=== PATIENT | male | born 1935 | race Caucasian/White ===

== ENCOUNTER → 2017-10-15 | Outpatient (CLI) | payer OTHER | LOC: BHFA 10:45 | PROVIDERS: ATTEND Internal Medicine Cardiovascular Disease | DX: I25.10 Atherosclerotic heart disease of native coronary artery without angina pectoris (principal) | CPT/HCPCS: 78452; 93017; 93306; A9500; J2785 ==

== ENCOUNTER → 2017-12-20 | Outpatient (CLI) | payer OTHER | LOC: FIMAGING 11:53 | PROVIDERS: ATTEND Radiology Diagnostic Radiology | DX: I87.2 Venous insufficiency (chronic) (peripheral) (principal); I70.8 Atherosclerosis of other arteries; L97.329 Non-pressure chronic ulcer of left ankle with unspecified severity; S81.802A Unspecified open wound, left lower leg, initial encounter ==

== ENCOUNTER 2017-12-21 15:36 | Inpatient (IN) | payer OTHER ==
[2017-12-21] MEDS ORDERED: ONDANSETRON DISINTEGRATING 4 MG TAB PO PRN (16:35)
[2017-12-21] MEDS ORDERED: ONDANSETRON 4 MG/2 ML VIAL IVP PRN (16:35)
[2017-12-21] MEDS ORDERED: ACETAMINOPHEN 325 MG TAB PO PRN (16:35)
[2017-12-21] MEDS ORDERED: VANCOMYCIN 1 GM in NS 250 ML IV ONE (17:30)
[2017-12-21 17:37] LABS: INR 1.1 (0.83-1.16); PROTIME(PATIENT) 14.4 SEC (12.0-15.0)
[2017-12-21] MEDS: AMPICILLIN/SULBACTAM 3 GM VIAL IV SCH ×2 (18:38→22:59)
[2017-12-21] MEDS: CARVEDILOL 6.25 MG TAB PO SCH (18:38)
--- NOTE | 2017-12-21 19:24 | GHP ---
[f rep st] HISTORY AND PHYSICAL DATE OF ADMISSION: 12/21/2017 CHIEF COMPLAINT: Leg pain. HISTORY OF PRESENT ILLNESS: An 82-year-old male with extensive cardiac history who has been followed in the outpatient setting for left lower extremity ulcerations. The patient was imaged earlier this week with ultrasound, found not to have DVT, and was noted in surgical evaluation today to have a ma rkedly extensive cellulitis. [facility] Upon arrival to the medical floor, the patient denies any chest pain. Denies palpitations. Endorses subjective fevers and chills. Endorses poor appetite, poor intake, poor fluid intake. Describes co nstipation without any dysuria or hematuria. Has had marked pain of the left lower extremity. Marke dly more pronounced by wrapping of his lower extremity in the outpatient setting. When those wraps w ere relieved, the patient's sensation of pain was markedly improved. The patient denies any abdomina l discomfort, but a sensation of constipation. The patient has been compliant with his outpatient medications. PAST MEDICAL HISTORY: 1. Coronary artery disease status post 12 stents. 2. Hypertension. 3. Hyperlipidemia. 4. Hypothyroidism. 5. Chronic unstable angina. 6. Ischemic cardiomyopathy. 7. History of colonic vesicular fistula status post repair in 2016. SOCIAL HISTORY: Patient occasionally smokes a pipe. Does not take alcohol or illicit drugs. FAMILY HISTORY: Positive for heart disease. REVIEW OF SYSTEMS: A 10-point review of systems is negative with the exception of that reported in t he HPI. ADVANCED DIRECTIVES: Patient is full cor, full tube. His daughter, Angelique, would be his medical deci linda maker. PHYSICAL EXAMINATION: VITAL SIGNS: Blood pressure 121/63, heart rate 67, respiratory rate 16, and 9 3% on room air, 36.5. GENERAL: This is a pleasant, elderly male sitting up in bed. HEENT: Notable for dry mucous membran es. Eye exam is negative for any icterus. CARDIAC: Patient is regular rate and rhythm. A systolic murmur is heard best at the left upper sternal border. PULMONARY: Good respiratory effort. LUNGS: Clear to auscultation bilaterally. GASTROINTESTINAL: The patient has vigorous bowel sounds. ABDOM EN: Soft and nontender. MUSCULOSKELETAL: His left lower extremity is wrapped. There is trace symm etric lower extremity edema. SKIN: Patient has marked swelling and erythema. The left lower extrem ity with open weeping wounds. NEUROLOGIC: He is alert and oriented x3. PSYCHIATRIC: He is pleasant and cooperative on interview and examination. DATA: White count 17.5, hematocrit 36.1, platelet count of 154. Creatinine 2.0, baseline is 1.0. B UN elevated at 55. X-ray of the knee, which I personally reviewed and interpreted, shows no acute bony abnormalities. V ascular calcifications are noted by Radiology. Ultrasound of the left lower extremity shows no deep venous thrombosis. ASSESSMENT AND PLAN: This is an 82-year-old male presenting with left lower extremity ulcerations an d cellulitis. 1. Acute progressive left lower extremity ulcerations and cellulitis. The patient's wounds have mar kedly progressed in the last couple weeks. He has been orally on Bactrim as an outpatient. Patient was evaluated with ultrasound. Seen by General Surgery today and will be taken to the operating room for debridement. Will treat with intravenous vancomycin and Unasyn. Cultures have been obtained fr om the outpatient clinic and are pending at this time. Will make the patient n.p.o. after midnight i n anticipation of the operating room. Additionally holding his aspirin and Plavix for the operating room. 2. Coronary artery disease. The patient is without chest pain complaints. Vital signs are stable. We will continue his carvedilol. Again, holding his aspirin and Plavix overnight. Will additionall y continue his atorvastatin. 3. Hypothyroidism. Will continue his levothyroxine. 4. Acute kidney injury. Patient's creatinine is 2.0. We will hold his angiotensin-converting enzym e inhibitor and hydrochlorothiazide. Will hydrate overnight and recheck his BMP in the morning. 5. Anemia, acute, normocytic. Suspect may be related to blood loss with his wound. We will continu e to follow. 6. Acute leukocytosis secondary to cellulitis and skin ulcerations. Again, cultures have been obtai shirlene. Will empirically treat with broad-spectrum intravenous antibiotics. The patient does not have additional symptoms concerning for other occult infection. 7. Prophylaxis with the sequential compression devices in anticipation of the operating room. 8. Diet: Regular, then n.p.o. after midnight. 9. Disposition: I expect greater than 2 midnights, as the patient is presenting with advanced lower extremity wound requiring intravenous antibiotics and surgical debridement. Discussed the case with Dr. Borden from surgery. Patient will be admitted and taken to the operating room tomorrow. /[id number]/MODL
--- NOTE | 2017-12-21 19:50 | PDMN ---
Medical Necessity Medical necessity: C/M review: est. > 2 MN LOS for eval and TX of acute and progressive left lower extremity ulcerations and cellulitis, acute kidney injury , acute normocytic anemia, acute leukocytosis secondary to cellulitis and ulcerations requiring General Surgery consult, planned 12/22/2017 surgical intervention - debridement, ongoing IV Unasyn, IV Vancomycin, comorbid patient transferred to [facility] from outpatient surgical evaluation, history of CAD S/P 12 stents, hypertension, hyperlipidemia, hypothyroidism, chronic unstable angina, ischemic cardiomyopathy, colonic vesicular fistula S/P repair in 2016 per H/P.
[2017-12-21] MEDS ORDERED: NS 500 ML IV ONE (20:11)
[2017-12-21] MEDS ORDERED: NS 1,000 ML IV SCH (20:15)
[2017-12-21] MEDS: Fluticasone/Vilanterol [Breo Ellipta 200-25 Mcg Inh] 1 EACH IH SCH (20:37)
[2017-12-21] MEDS: LEVOTHYROXINE 88 MCG TAB PO SCH (20:37)
[2017-12-21] MEDS: ATORVASTATIN CALCIUM 20 MG TAB PO SCH (20:37)
[2017-12-21] MEDS: FAMOTIDINE 20 MG TAB PO SCH (20:37)
[2017-12-22] MEDS ORDERED: CALCIUM CARBONATE 500 MG CHEWABLE TAB PO ONE (00:11)
[2017-12-22] MEDS: AMPICILLIN/SULBACTAM 3 GM VIAL IV SCH ×4 (05:25→23:19)
[2017-12-22 05:33] LABS: PLATELET COUNT 143 10^3/uL (150-400)
[2017-12-22] MEDS ORDERED: HYDROmorphONE/DILAUDID 1 MG/ML INJ IVP PRN (06:55)
[2017-12-22] MEDS ORDERED: HYDROmorphONE/DILAUDID 2 MG/ML INJ IVP PRN (07:06)
--- NOTE | 2017-12-22 07:51 | SOAPPROG ---
SOAP Progress Note Assessment/Plan: Assessment: 82 year old seen in my office yesterday with progressive cellulitus and lower extremity wounds WBC improved today. Will proceed with operative debridement Plan: 12/22/17 07:49 Objective: Vital Signs Temp Pulse Resp BP Pulse Ox 36.8 C 60 16 128/67 H 96 12/22/17 07:07 12/22/17 07:07 12/22/17 07:07 12/22/17 07:07 12/22/17 07:07 Laboratory Results 12/22/17 04:13 12/22/17 04:13 12/21/17 12/22/17 12/23/17 05:59 05:59 05:59 Intake Total 309 Balance 309 PT 14.4 SEC (12.0-15.0) 12/21/17 17:18 INR 1.10 (0.83-1.16) 12/21/17 17:18 ICD10 Worksheet Patient Problems: Problems Problem Status Onset Abscess or cellulitis of foot Acute - ICD10 Problem Qualifiers (1) Abscess or cellulitis of foot
[2017-12-22] MEDS ORDERED: NALOXONE HCL 0.4 MG/ML INJ IVP PRN (08:34)
[2017-12-22] MEDS ORDERED: ONDANSETRON 4 MG/2 ML VIAL IVP PRN (08:34)
--- NOTE | 2017-12-22 08:34 | PDANEPAE ---
ANE History of Present Illness here for LLE I and D ANE Past Medical History - Cardiovascular History Hx Hypertension: Yes Hx Arrhythmias: No Hx Chest Pain: Yes Hx Coronary Artery / Peripheral Vascular Disease: Yes Hx CHF / Valvular Disease: No Hx Palpitations: No - Pulmonary History Hx COPD: Yes Hx Asthma/Reactive Airway Disease: No Hx Recent Upper Respiratory Infection: No Hx Oxygen in Use at Home: Yes O2 in Use at Home (L/minute): 2 Hx Sleep Apnea: No Sleep Apnea Screening Result - Last Documented: Positive - Neurologic History Hx Cerebrovascular Accident: No Hx Seizures: No Hx Dementia: No - Endocrine History Hx Diabetes: No Hypothyroid: No Hyperthyroid: No - Renal History Hx Renal Disorders: No ANE Review of Systems Review of systems is: negative Review of Systems: - Exercise capacity Exercise capacity: <4 METS - Pacemaker Pacemaker Wood P[employer]: [employer] Patient History - Allergies Allergies/Adverse Reactions: MUSHROOMS Allergy (Mild, Uncoded 08/15/15 11:59) Vomiting - Home Medications Home medications: home medication list seen and reviewed Home Medications: Aspirin [Aspirin 81mg (OTC)] 81 mg PO HS 04/08/12 [Last Taken 12/20/17] Carvedilol [Coreg (RX)] 6.25 mg PO BIDMEAL 04/08/12 [Last Taken 12/21/17] Clopidogrel Bisulfate [Plavix (RX)] 75 mg PO DAILY 04/08/12 [Last Taken 12/21/17 ] Diclofenac Sodium [Voltaren 75 MG (RX)] 75 mg PO DAILY 04/08/12 [Last Taken 03/04] Levothyroxine [Synthroid 88 mcg (RX)] 88 mcg PO HS 04/08/12 [Last Taken 12/20/17 ] Losartan/Hydrochlorothiazide [Losartan-Hctz 100-25 Mg Tab] 0.5 each PO BID 04/08 [Last Taken 12/21/17] Ranitidine HCl [Ranitidine HCl 150 mg] 150 mg PO BID 04/08/12 [Last Taken ] Atorvastatin Calcium [Lipitor 20 mg (*)] 20 mg PO HS 08/15/15 [Last Taken ] Fluticasone/Vilanterol [Breo Ellipta 200-25 Mcg INH] 1 each IH 08/15/15 [ Last Taken 12/18/17] Acetaminophen [Tylenol 325mg (*)] 650 mg PO Q6 PRN 12/21/17 [Last Taken 12/19/17 ] Sulfamethox/Tmp 800/160 mg [Bactrim Ds] 1 tab PO BID 12/21/17 [Last Taken ] amLODIPine BESYLATE [Norvasc 5 mg (*)] 5 mg PO DAILY 12/21/17 [Last Taken ] predniSONE 20 mg PO DAILY 12/21/17 [Last Taken 12/20/17] - NPO status NPO Status: no food or drink >8 hours NPO Since - Liquids (Date): 12/22/17 NPO Since - Liquids (Time): 00:00 NPO Since - Solids (Date): 12/22/17 NPO Since - Solids (Time): 00:00 - Smoking Hx Smoking Status: Former smoker ANE Labs/Vital Signs - Labs Result Diagrams: 12/22/17 04:13 12/22/17 04:13 - Vital Signs Blood Pressure: 111/64 Heart Rate: 64 Respiratory Rate: 16 O2 Sat (%): 93 Height: 173.99 cm Weight: 76 kg ANE Physical Exam - Airway Neck exam: FROM Mallampati Score: Class 1 - Pulmonary Pulmonary: no respiratory distress - Cardiovascular Cardiovascular: regular rate and rhythym - ASA Status ASA Status: IV ANE Anesthesia Plan Anesthesia Plan: GA w LMA
--- NOTE | 2017-12-22 08:34 | CPEKG ---
Heart Rate: 59 RR Interval: 1017 P-R Interval: 172 QRSD Interval: 112 QT Interval: 400 QTC Interval: 397 P [place]: -20 QRS [place]: -50 T Wave [place]: 56 EKG Severity - ABNORMAL ECG - EKG Impression: SINUS RHYTHM EKG Impression: NONSPECIFIC IVCD WITH LAD EKG Impression: LOW VOLTAGE IN FRONTAL LEADS Electronically Signed By: Josh Meyers 22-Dec-2017 09:23:55
[2017-12-22] MEDS ORDERED: PROPOFOL 200 MG/20 ML VIAL ONE (08:38)
[2017-12-22] MEDS ORDERED: fentaNYL 100 MCG/2 ML INJ ONE ×3 (08:41→09:54)
[2017-12-22] MEDS ORDERED: DICLOFENAC SODIUM 75 MG TAB PO SCH (09:00)
--- NOTE | 2017-12-22 09:11 | GCON ---
[f rep st] CONSULTATION CARDIAC CONSULTATION DATE OF CONSULTATION: 12/22/2017 CHIEF COMPLAINT: Patient needs urgent wound debridement. This is a preoperative clearance. HISTORY OF PRESENT ILLNESS: Mr. Rangel is well-known to our practice, usually followed by Dr. Kingston cabello. He has had extensive cardiac history with multiple stentings and myocardial infarctions, the l ast being 2011. He also had an AICD placed. Up until a week ago, he was able to walk 30 minutes wit hout problems. He has a history of a toe ulcer with probable abscess and cellulitis into his left ank le. He is having fevers and extensive cellulitis. He is brought to the [facility] for further evaluation. His needs a debridement. I was asked to see him this morning prior to surgery. In speaking to him, he denies any cardiovascular complaints. He has none of his anginal equivalent s which was shortness of breath. Like I said, he was very active walking up until a week ago. His E KG is normal sinus rhythm without arrhythmias. He has an AICD in place. The last evaluation showed n o evidence of significant arrhythmias. He denies any shocks. He has a known lead with a high impedan ce documented in our chart. He has an EF of approximately 53% with inferior myocardial infarction. He had a nuclear stress test that showed infarction with almaz-infarction ischemia. He denies any ang robert or CHF. At this point, his creatinine baseline is 1.0, and is now 2.0. I had a discussion with the patient and Dr. Khan and Dr. Arellano. At this point, I think the patient would be [id number] e risk and does not need further cardiac testing at this time for intended surgery, which is a debrid ement. If need be, nitroglycerin and beta blockers could be used. However, he is in normal sinus rh ythm with normal EKG at this time, and he is not having any cardiac issues. PAST MEDICAL HISTORY: Coronary artery disease, status post questionable 12 stents in the past. He h as a history of hypertension and hyperlipidemia. He has stable ischemic cardiomyopathy. MEDICATIONS: He is on multiple medications. See reconciliation form. His Plavix was held today but will be restarted after surgery. REVIEW OF SYSTEM: His 10-point review of systems is positive for his infected foot but no cardiovasc ular issues or GI/ bleeding. LABORATORY STUDIES: White count of 13, hemoglobin of 12. Creatinine 1.5 to 2.0. BUN 55. Potassium 4 .4. SOCIAL HISTORY: Noncontributory. PHYSICAL EXAMINATION: VITAL SIGNS: Blood pressure is 111/64, heart rates in the 60s in sinus. HEEN T: Negative. LUNGS: Lungs are clear to anterior auscultation. CARDIOVASCULAR: Regular rate and rhy thm with a systolic murmur. No JVP. ABDOMEN: Soft, nontender. EXTREMITIES: No edema in the right foot. The left foot has a cellulitis with ulcers and minimal edema at this time. ASSESSMENT: 1. Preop cardiovascular evaluation. The patient should be low to moderate risk for upcoming surgery . He has an infected wound which needs debridement and cellulitis. At this point, he has a high whit e count and pending renal insufficiency. He is not having any unstable cardiac conditions. At least b y his history up to a week ago, he was walking. He has a known stable ischemic cardiomyopathy. He nielsen s a defibrillator in place and no noted shocks. He has a normal EKG today. At this point, no further cardiac testing is necessary. I think surgery is deemed important at this time to prevent possible sepsis. The patient is alert and oriented and understands and confirms that he is not having any car diovascular issues. 2. History of coronary artery disease. As noted above, we will restart Plavix after surgery. 3. Other medications will be continued as ordered. Questions were answered. The patient understands, accepts and wished to proceed with the surgery. Q uestions also answered with the surgeon and anesthesiologist. /[id number]/MODL
[2017-12-22] MEDS ORDERED: HYDROCODONE/APAP 5/325 TAB PO PRN (09:36)
--- NOTE | 2017-12-22 09:39 | POSTOPPROG ---
Post Op Note Date of Operation: 12/22/17 Surgeon: Coty Borden Anesthesiologist: andree Anesthesia: GET(General Endotracheal) Pre-op Diagnosis: cellulitus and lower extremity wound Post-op Diagnosis: same Indication: 82 yo with cellulitus and lower extremity wound Procedure: debride skin soft tissue to the level of tendon and bone [id number] cm LLE Findings: achilles, extensor tendon and tibia exposed Inf/Abcess present in the surg proc area at time of surgery?: Yes Depth: Deep Incisional (Fascial) EBL: Minimal Specimen(s): soft tissue for culture
[2017-12-22] MEDS ORDERED: LR 1,000 ML IV ONE (09:48)
[2017-12-22] MEDS: fentaNYL 100 MCG/2 ML INJ IVP PRN ×3 (09:55→10:14)
[2017-12-22] MEDS ORDERED: ONDANSETRON 4 MG/2 ML VIAL ONE (10:06)
[2017-12-22] MEDS: amLODIPine BESYLATE 5 MG TAB PO SCH (12:00)
[2017-12-22] MEDS: FAMOTIDINE 20 MG TAB PO SCH ×2 (12:00→22:24)
[2017-12-22] MEDS: CARVEDILOL 6.25 MG TAB PO SCH ×2 (12:00→17:37)
[2017-12-22] MEDS: predniSONE 20 MG TAB PO SCH (12:02)
--- NOTE | 2017-12-22 12:55 | HOSPPROG ---
Hospitalist Progress Note Assessment/Plan: 82-year-old man with a history significant for coronary artery disease and ischemic cardiomyopathy is admitted with a infected lower extremity ulcer requiring debridement this morning. # left lower extremity ulceration and cellulitis status post I and D by Dr. Khan. * Antibiotics per ID * Wound care and wound VAC # coronary artery disease with ischemic cardiomyopathy status post multiple stents. He is followed by [facility] and had a recent stress test which showed some almaz-infarct ischemia. Dr. Mistry did a cardiac clearance prior to surgery and he currently is doing well from a cardiac standpoint * Continue telemetry monitoring * Patient currently asymptomatic * Resume medications including Plavix this evening # acute kidney injury on admission with a creatinine of 2.0, improved today at 1.5 will continue to monitor this closely * Follow renal function * Resume Arb when renal function improves * Check urine electrolytes # hypertension # dyslipidemia # peripheral vascular disease Subjective: Patient new to me and chart review. Doing well postoperatively denies any cardiac symptoms or shortness of breath. He is having some discomfort in his left foot. Objective: Vital Signs Temp Pulse Resp BP Pulse Ox 36.3 C 58 L 16 110/72 96 12/22/17 11:04 12/22/17 11:04 12/22/17 11:04 12/22/17 11:04 12/22/17 11:04 Microbiology 12/22/17 09:08 Gram Stain - Final Leg - Tissue Laboratory Results 12/22/17 04:13 12/22/17 04:13 12/21/17 12/22/17 12/23/17 05:59 05:59 05:59 Intake Total 309 100 Output Total 175 Balance 309 -75 PT 14.4 SEC (12.0-15.0) 12/21/17 17:18 INR 1.10 (0.83-1.16) 12/21/17 17:18 - Physical Exam Constitutional: uncomfortable Eyes: PERRL, EOMI Ears, Nose, Mouth, Throat: moist mucous membranes Cardiovascular: regular rate and rhythym Respiratory: no respiratory distress, clear to auscultation Gastrointestinal: normoactive bowel sounds, soft, non-tender abdomen Genitourinary: no bladder fullness Skin: other (Wound VAC left lower leg chronic stasis changes and diminished pulse) Neurologic: AAOx3, No facial droop Psychiatric: interacting appropriately, not anxious ICD10 Worksheet Patient Problems: Problems Problem Status Onset Abscess or cellulitis of foot Acute
--- NOTE | 2017-12-22 15:33 | SOAPPROG ---
SOAP Progress Note Assessment/Plan: Assessment: s/p debridement of skin soft tissue, tendon and bone [id number] pain controlled wound vac to suction No activity limitations Will need to monitor wv for blood. Can restart plavix Plan: 12/22/17 07:49 12/22/17 15:32 Objective: Vital Signs Temp Pulse Resp BP Pulse Ox 36.9 C 61 12 105/61 95 12/22/17 15:13 12/22/17 15:13 12/22/17 15:13 12/22/17 15:13 12/22/17 15:13 Microbiology 12/22/17 09:08 Gram Stain - Final Leg - Tissue Laboratory Results 12/22/17 04:13 12/22/17 04:13 12/21/17 12/22/17 12/23/17 05:59 05:59 05:59 Intake Total 309 400 Output Total 800 Balance 309 -400 PT 14.4 SEC (12.0-15.0) 12/21/17 17:18 INR 1.10 (0.83-1.16) 12/21/17 17:18 ICD10 Worksheet Patient Problems: Problems Problem Status Onset Abscess or cellulitis of foot Acute - ICD10 Problem Qualifiers (1) Abscess or cellulitis of foot
--- NOTE | 2017-12-22 17:51 | ASMTCMCOM ---
CM Note CM Note Notes: Pt admitted with LLE ulcerations & cellulitis requiring surgical debridement with wound vac placement. 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 PT recommending HHC. OT ordered; awaiting eval. Attempted to meet with pt to discuss HHC, but pt was unavailable. CM will follow up tomorrow. Plan TBD Date Signed: 12/22/2017 05:50 PM Electronically Signed By:Juliana Ayala RN
[2017-12-22] MEDS ORDERED: VANCOMYCIN 750 MG in NS 150 ML IV SCH (18:00)
[2017-12-22] MEDS ORDERED: VANCOMYCIN HCL/NORMAL SALINE 250 ML IV SCH (18:00)
--- NOTE | 2017-12-22 20:53 | GCON ---
[f rep st] CONSULTATION INFECTIOUS DISEASE CONSULTATION DATE OF CONSULTATION: 12/22/2017 REFERRING PHYSICIAN: Coty Borden MD REASON FOR CONSULTATION: Left lower extremity wound infection with cellulitis. CHIEF COMPLAINT: Redness involving the lower extremity, increasing pain and swelling. HISTORY OF PRESENTING ILLNESS: This is an 82-year-old male with a past medical history sig nificant for coronary artery disease and hypertension, dyslipidemia, chronic unstable angina, and isc hemic cardiomyopathy who developed erythema involving his left 3rd toe about 10 days ago. He states that he thinks that he developed a wound due to chronic friction from his shoes. He went and saw his primary care doctor who placed him on Bactrim therapy and apparently did some compression dressings. The patient started to complain of increasing pain with the compression dressings. By mid last we k, he started to develop ecchymotic areas involving the left lower leg, increasing pain, and ongoing redness involving the 3rd toe, foot, and up the left leg. He denies fevers, shaking chills. He was seen by Surgery yesterday, who recommended hospitalization for debridement. He was placed on vancomy joseph and Unasyn yesterday. He came in with an elevated white blood cell count at 17,000. Blood cultu res x2 sets were drawn yesterday and are currently pending. He was taken to the OR today and below t he ecchymotic area, infected material was noted, but the wound extended down to tendons and bone. He was then placed with a wound VAC. The patient stated that he was having copious drainage from the w ound site that was yellowish thin in nature and occasionally bloody at times. Infectious Disease is now consulted for further evaluation and opinion. REVIEW OF SYSTEMS: GENERAL: Denied any fevers or shaking chills. HEAD: No headaches. EYES: No c hange in vision. ENT: No sore throat, difficulty swallowing, ear pain or drainage. CARDIOVASCULAR: No chest pain or rapid heartbeat. RESPIRATORY: No acute increase in shortness of breath, cough, o r sputum production, although he has this at baseline. ABDOMEN: No abdominal pain, vomiting, or oscar rrhea. He has occasional nausea. : No dysuria or hematuria. MUSCULOSKELETAL: Denies any other joint pains or muscle aches. SKIN: As above. Rest of 10-point review of systems essentially negati ve except as above. PAST MEDICAL HISTORY: Significant for ischemic cardiomyopathy, hypothyroidism, hyperlipidemia, chron ic unstable angina, hypertension, coronary artery disease, status post 12 stents, history of a colove sicular fistula. PAST SURGICAL HISTORY: Significant for colovesicular fistula repair in 2016. ALLERGIES: No known medication allergies. SOCIAL HISTORY: Occasionally smokes a pipe. Does not drink alcohol. FAMILY HISTORY: Significant for heart disease. MEDICATIONS: As per MAR. PHYSICAL EXAMINATION: VITAL SIGNS: Temperature current is 36.9. Pulse is 61, blood pressure 105/61 . Respiratory rate is 12, saturation 95% on 2 L O2 via nasal cannula. GENERAL: Patient is sitting up in the chair in no acute respiratory distress. Awake, alert, and oriented x3. HEENT: Head is no rmocephalic, atraumatic. Eyes: Pupils are equally round, reactive to light. There is no conjunctiv al injection or petechiae noted. Oropharynx is clear. There is no posterior erythema or thrush. CA RDIOVASCULAR: S1, S2. Regular rate and rhythm. RESPIRATORY: Clear to auscultate bilaterally. No rhonchi or rales appreciated. ABDOMEN: Positive bowel sounds in all 4 quadrants. Soft, nontender, nondistended. EXTREMITIES: Left lower extremity with a wound VAC in place over a moderate-sized wou nd. There has been significant improvement in the degree of cellulitis noted involving the left lowe r leg, dorsum of the foot, and 3rd toe. There is some minimal residual pigmentation noted. Skin is really only warm around the wound VAC. Otherwise, not warm. He has a wound noted over the 3rd toe, which was debrided in the OR today. He also has a small scabbed wound over the right 3rd toe as well . There is no cellulitis around this, and there is no drainage. LABORATORY DATA: White blood cell count is 13.4, down from 17.5, hemoglobin 11.6. Platelets are 143 . Neutrophil count is 75% with 4% bandemia. Sodium 136, potassium 4.4, chloride 74. Bicarb is 26. BUN is 42. Creatinine is 7.5, down from 10.0. C-reactive protein added to labs drawn earlier today 72.8. Blood cultures x2 sets are pending. A wound culture from today's OR shows 4+ polys, 3+ gram- positive cocci in clusters. Culture is pending. Abdominal x-ray reviewed shows normal bowel gas pat terns. ASSESSMENT: 1. Deep left lower extremity wound infection with debridement down to bone with exposed tendon. 2. Cellulitis involving the 3rd left toe dorsum of the foot and left lower extremity. PLAN: Patient is currently on vancomycin and Unasyn therapy for broad-spectrum antimicrobial coverag e. The patient was given a gram of vancomycin yesterday and was placed on 750 mg daily. However, in review of his current labs recommend bumping up to 1 g q.24 and maintaining that dose for now with c lose monitoring of his labs. Care was coordinated with pharmacy team. Given lower extremity wound a nd surprise on depth of wound, will maintain broad-spectrum coverage for now pending cultures. Revie wed operative results with Dr. Borden and no necrotizing infection noted as such. The cultures were r eviewed with the patient and his family at the bedside. Plan of care was reviewed with the patient a nd the patient's family. Care was coordinated with the surgical team, Dr. Borden, and as well as his nurse and pharmacy team. I thank you very much for providing this opportunity to care for your patient in consultation. /[id number]/MODL
[2017-12-22] MEDS: Fluticasone/Vilanterol [Breo Ellipta 200-25 Mcg Inh] 1 EACH IH SCH (21:10)
[2017-12-22] MEDS: LEVOTHYROXINE 88 MCG TAB PO SCH (22:24)
[2017-12-22] MEDS: ATORVASTATIN CALCIUM 20 MG TAB PO SCH (22:24)
[2017-12-22] MEDS ORDERED: SIMETHICONE 80 MG TAB CHEW PO PRN (22:47)
[2017-12-22] MEDS ORDERED: MELATONIN 3 MG TAB PO PRN (22:47)
[2017-12-23 04:36] LABS: PLATELET COUNT 138 10^3/uL (150-400)
[2017-12-23] MEDS: AMPICILLIN/SULBACTAM 3 GM VIAL IV SCH ×2 (06:33→12:11)
[2017-12-23] MEDS: traMADol 50 MG TAB PO PRN (08:02)
[2017-12-23] MEDS: predniSONE 20 MG TAB PO SCH ×2 (08:03→08:04)
[2017-12-23] MEDS: amLODIPine BESYLATE 5 MG TAB PO SCH (08:03)
[2017-12-23] MEDS: FAMOTIDINE 20 MG TAB PO SCH ×2 (08:03→21:24)
[2017-12-23] MEDS: CARVEDILOL 6.25 MG TAB PO SCH ×2 (08:03→18:28)
--- NOTE | 2017-12-23 08:35 | SOAPPROG ---
SOAP Progress Note Assessment/Plan: Assessment:1. ischemic cm with aicd...cv status stable and no apparent cardiac issues with surgery..no change today and maintain same meds.. Plan:1. ok to treat wounds as needed from cv standpoint..we sign off now..contact us if further assistance needed 12/23/17 08:32 Subjective: pt doing doing well post surgical wound debridement...no cardiac issues or complaints... Objective: Vital Signs Temp Pulse Resp BP Pulse Ox 37.0 C 60 17 114/62 97 12/23/17 07:58 12/23/17 07:58 12/23/17 07:58 12/23/17 07:58 12/23/17 07:58 Microbiology 12/22/17 09:08 Gram Stain - Final Leg - Tissue Laboratory Results 12/23/17 03:55 12/23/17 03:55 12/22/17 12/23/17 12/24/17 05:59 05:59 05:59 Intake Total 309 1305 Output Total 1150 Balance 309 155 PT 14.4 SEC (12.0-15.0) 12/21/17 17:18 INR 1.10 (0.83-1.16) 12/21/17 17:18 Physical Exam - Physical Exam Respiratory: lungs clear Cardiac/Chest: No edema, No JVD ICD10 Worksheet Patient Problems: Problems Problem Status Onset Abscess or cellulitis of foot Acute
--- NOTE | 2017-12-23 10:28 | HOSPPROG ---
Hospitalist Progress Note Assessment/Plan: 82-year-old man with a history significant for coronary artery disease and ischemic cardiomyopathy is admitted with a infected lower extremity ulcer requiring debridement this morning. # left lower extremity ulceration and cellulitis status post I and D by Dr. Khan. * Antibiotics per ID * MSSA on wound * Wound care and wound VAC # coronary artery disease with ischemic cardiomyopathy status post multiple stents. He is followed by [facility] and had a recent stress test which showed some almaz-infarct ischemia. Dr. Mistry did a cardiac clearance prior to surgery and he currently is doing well from a cardiac standpoint * Continue telemetry monitoring * Patient currently asymptomatic * Resume medications # acute kidney injury on admission with a creatinine of 2.0, improved today at 1.5 will continue to monitor this closely * Follow renal function * Resume Arb when renal function improves * Check urine electrolytes # hypertension # dyslipidemia # peripheral vascular disease Subjective: Patient doing well. No significant complaints at this time. No chest pain no shortness of breath Objective: Vital Signs Temp Pulse Resp BP Pulse Ox 37.0 C 60 17 114/62 97 12/23/17 07:58 12/23/17 07:58 12/23/17 07:58 12/23/17 07:58 12/23/17 07:58 Microbiology 12/22/17 09:08 Gram Stain - Final Leg - Tissue Laboratory Results 12/23/17 03:55 12/23/17 03:55 12/22/17 12/23/17 12/24/17 05:59 05:59 05:59 Intake Total 309 1305 Output Total 1150 Balance 309 155 PT 14.4 SEC (12.0-15.0) 12/21/17 17:18 INR 1.10 (0.83-1.16) 12/21/17 17:18 - Physical Exam Constitutional: no apparent distress Cardiovascular: regular rate and rhythym Respiratory: no respiratory distress, reduced air movement Skin: other (Erythema mild edema left lower extremity with wound VAC in place) Psychiatric: interacting appropriately, not anxious ICD10 Worksheet Patient Problems: Problems Problem Status Onset Abscess or cellulitis of foot Acute
--- NOTE | 2017-12-23 12:29 | SOAPPROG ---
SOAP Progress Note Assessment/Plan: Assessment: s/p debridement of skin soft tissue, tendon and bone [id number] pain controlled wound vac to suction. Possible amniofill under vac tomorrow No activity limitations Will need to monitor wv for blood. Can restart plavix S: feeling well O: Sitting in chair, family at bedside Hammertoes bilaterally, small pinpoint wound right second toe, No erythema L second toe debrided in OR Wound vac to suction - serosanguinous drainage Erythema markedly improved from pre-op Plan: 12/22/17 07:49 12/22/17 15:32 12/23/17 12:27 Objective: Vital Signs Temp Pulse Resp BP Pulse Ox 36.5 C 67 12 103/84 H 98 12/23/17 11:40 12/23/17 11:40 12/23/17 11:40 12/23/17 11:40 12/23/17 11:40 Microbiology 12/22/17 09:08 Gram Stain - Final Leg - Tissue Laboratory Results 12/23/17 03:55 12/23/17 03:55 12/22/17 12/23/17 12/24/17 05:59 05:59 05:59 Intake Total 309 1305 Output Total 1150 Balance 309 155 PT 14.4 SEC (12.0-15.0) 12/21/17 17:18 INR 1.10 (0.83-1.16) 12/21/17 17:18 ICD10 Worksheet Patient Problems: Problems Problem Status Onset Abscess or cellulitis of foot Acute - ICD10 Problem Qualifiers (1) Abscess or cellulitis of foot
[2017-12-23] MEDS ORDERED: ceFAZolin 2 GM/DEXTROSE 100 ML IV SCH (14:00)
--- NOTE | 2017-12-23 14:00 | PCMIDPN ---
Assessment/Plan: Assessment/Plan: 1. RLE cellulitis/wound infection with debridment down to bone/exposed tendon: - Cx with staph aureus, prelim MSSA - will d/c unasyn,vanco and change to Ancef -patient, family updated on lab/cx results - patient, family updated on plan of care, atbx, etc -Given need to extend debridement down to bone would recommend 6 weeks iv atbx. -wbc a bit up today but likely reactive given yesterdays surgery. continue to follow -creatinine improving each day. - blood cx ngtd Meds unasyn vanco-----see above for changes. Subjective: afebrile. feels better today. Denies sob, abd pain or diarrhea.RLe with wound vac . Objective: Vital Signs Temp Pulse Resp BP Pulse Ox 36.5 C 67 12 103/84 H 98 12/23/17 11:40 12/23/17 11:40 12/23/17 11:40 12/23/17 11:40 12/23/17 11:40 Microbiology 12/22/17 09:08 Gram Stain - Final Leg - Tissue Laboratory Results 12/23/17 03:55 12/23/17 03:55 12/22/17 12/23/17 12/24/17 05:59 05:59 05:59 Intake Total 309 1305 Output Total 1150 Balance 309 155 C-Reactive Protein 72.8 mg/L (<10.0) H 12/22/17 04:13 - Physical Exam General Appearance: alert, no apparent distress Respiratory: lungs clear Cardiac/Chest: regular rate, rhythm Extremities: No swelling Abdomen: normal bowel sounds, non-tender, soft, No distended Skin: erythema (RLE with mild erythema on leg but far improved. wound vac noted. dressing over 3rd toe wound. skin is warm still near wound vac. nontender ) ICD10 Worksheet Patient Problems: Problems Problem Status Onset Abscess or cellulitis of foot Acute
[2017-12-23] MEDS: CLOPIDOGREL BISULFATE 75 MG TAB PO SCH (14:54)
[2017-12-23] MEDS: ceFAZolin 2 GM/SWFI 2 GM/20 ML SYR IVP SCH ×2 (14:54→21:25)
--- NOTE | 2017-12-23 16:06 | GOP ---
[f rep st] OPERATIVE REPORT DATE OF OPERATION: 12/22/2017 SURGEON: Coty Borden MD ANESTHESIA: General. ANESTHESIOLOGIST: Dr. Toby Arellano. PREOPERATIVE DIAGNOSIS: Cellulitis and lower extremity wounds. POSTOPERATIVE DIAGNOSIS: Cellulitis and lower extremity wounds. PROCEDURE PERFORMED: Debride skin, soft tissue to the level of tendon and bone, 14 x 11 x 1 cm. FINDINGS: Achilles, extensor tendon and tibia exposed. SPECIMENS: Tissue for culture. INDICATIONS: 82-year-old with cellulitis and lower extremity wounds. I saw him in my office. The w ounds were draining quite significantly and I felt they would be more extensive than would be appropr iate for bedside debridement. DESCRIPTION OF PROCEDURE: The patient was brought into the operating room, placed supine on the tabl e, and general anesthesia was administered. His left lower leg was prepped and draped in the usual s terile fashion. I explored the wounds and the 2 ulcerations communicated. The heavy eschar was removed and there was no viable soft tissue underneath the eschar. I debrided using the Versajet down to the level of bon e and tendon. Once the area was cleaned, hemostasis was achieved with electrocautery. I placed white sponge follow ed by black sponge and negative pressure therapy. The wound measured 14 x 11 x 1 cm. He was awakened in the operating room, extubated, and transferred to the PACU in stable condition. /[id number]/MODL
--- NOTE | 2017-12-23 16:29 | ASMTCMCOM ---
CM Note CM Note Notes: Patient has had HC in the past. didn't know agency's name. [facility] that he would need PT and RN for wound care. Has a wound vac. [facility]. Not sure about the HC's staffing abilities. Date Signed: 12/23/2017 04:28 PM Electronically Signed By:Shaunna Vinson LCSW
[2017-12-23] MEDS: Fluticasone/Vilanterol [Breo Ellipta 100-25 Mcg Inh] 1 EACH IH SCH (19:40)
[2017-12-23] MEDS ORDERED: Fluticasone/Vilanterol [Breo Ellipta 200-25 Mcg Inh] 1 EACH IH SCH (21:00)
[2017-12-23] MEDS: ATORVASTATIN CALCIUM 20 MG TAB PO SCH (21:24)
[2017-12-23] MEDS: LEVOTHYROXINE 88 MCG TAB PO SCH (21:24)
[2017-12-24 04:11] LABS: PLATELET COUNT 135 10^3/uL (150-400)
[2017-12-24] MEDS: ceFAZolin 2 GM/SWFI 2 GM/20 ML SYR IVP SCH ×3 (06:04→21:12)
[2017-12-24] MEDS ORDERED: HYDROmorphone HCL/NS 0.5 MG/ML SYR IVP PRN (08:30)
[2017-12-24] MEDS: amLODIPine BESYLATE 5 MG TAB PO SCH (08:39)
[2017-12-24] MEDS: predniSONE 20 MG TAB PO SCH (08:39)
[2017-12-24] MEDS: FAMOTIDINE 20 MG TAB PO SCH (08:39)
[2017-12-24] MEDS: CARVEDILOL 6.25 MG TAB PO SCH ×2 (08:39→17:30)
[2017-12-24] MEDS: CLOPIDOGREL BISULFATE 75 MG TAB PO SCH (08:39)
[2017-12-24] MEDS: traMADol 50 MG TAB PO PRN (10:03)
--- NOTE | 2017-12-24 10:49 | HOSPPROG ---
Hospitalist Progress Note Assessment/Plan: 82-year-old man with a history significant for coronary artery disease and ischemic cardiomyopathy is admitted with a infected lower extremity ulcer requiring debridement this morning. This morning complaining of difficulty swallowing, has not taken anything solid in today and cannot keep any water in. Says he has had difficulty eating over the last 2 days but has not noted symptoms like today and thought it was due to the medications he is on. # dysphagia: Unclear etiology patient's abdomen fairly soft, discussed with GI they will see him this morning. * GI consult for possibly EGD * NPO * Give IV fluids # left lower extremity ulceration and cellulitis status post I and D by Dr. Khan. * Antibiotics per ID * MSSA on wound * Wound care and wound VAC # coronary artery disease with ischemic cardiomyopathy status post multiple stents. He is followed by [facility] and had a recent stress test which showed some almaz-infarct ischemia. Dr. Mistry did a cardiac clearance prior to surgery and he currently is doing well from a cardiac standpoint * Continue telemetry monitoring * Patient currently asymptomatic * Resume medications # acute kidney injury on admission with a creatinine of 2.0, improved today at 1.5 will continue to monitor this closely * Follow renal function * Resume Arb when renal function improves * Check urine electrolytes # hypertension # dyslipidemia # peripheral vascular disease Subjective: Patient complaining of a sensation that liquids are getting stuck midway down his esophagus. He was able to drink a cup of coffee and some prune juice but has had constant retching since then, he has not been able to take in any water and has not eaten anything solid today Objective: Vital Signs Temp Pulse Resp BP Pulse Ox 36.8 C 63 18 125/67 H 97 12/24/17 08:38 12/24/17 08:38 12/24/17 08:38 12/24/17 08:38 12/24/17 08:38 Microbiology 12/22/17 09:08 Gram Stain - Final Leg - Tissue Laboratory Results 12/24/17 03:48 12/24/17 03:48 12/23/17 12/24/17 12/25/17 05:59 05:59 05:59 Intake Total 1305 1190 Output Total 1150 600 Balance 155 590 PT 14.4 SEC (12.0-15.0) 12/21/17 17:18 INR 1.10 (0.83-1.16) 12/21/17 17:18 - Physical Exam Constitutional: chronically ill appearing, uncomfortable Eyes: PERRL, anicteric sclera Ears, Nose, Mouth, Throat: moist mucous membranes Cardiovascular: regular rate and rhythym Respiratory: no respiratory distress, clear to auscultation, reduced air movement Gastrointestinal: normoactive bowel sounds, other (Soft positive bowel sounds) Genitourinary: no bladder fullness Skin: warm Neurologic: AAOx3 Psychiatric: interacting appropriately, not anxious ICD10 Worksheet Patient Problems: Problems Problem Status Onset Abscess or cellulitis of foot Acute
[2017-12-24] MEDS ORDERED: NS 1,000 ML IV SCH (11:00)
[2017-12-24] MEDS ORDERED: MIDAZOLAM 2 MG/2 ML VIAL ONE (11:03)
[2017-12-24] MEDS ORDERED: fentaNYL 100 MCG/2 ML INJ ONE (11:03)
--- NOTE | 2017-12-24 11:32 | SOAPPROG ---
SOAP Progress Note Assessment/Plan: Assessment/Plan: 82yo M POD#2 s/p debridement of skin soft tissue, tendon and bone [id number] Pain controlled No activity restrictions Wound vac change MWF - possible amniofill under vac next change Appreciate hospitalists Dysphagia - will discuss with hospitalists. Consider swallow study Continue inpatient. Discussed with Dr. Borden. S: pain controlled. complains of difficulty swallowing this morning - usually caused by phlegm caught in throat but has been unable to clear it this morning. No bleeding. Has never had imaging. O: Sitting in chair, comfortable, NAD, transfered to bed independently Hammertoes bilaterally, small pinpoint wound right second toe, No erythema L second toe dressing in place - no erythema Wound vac removed - several areas of active bleeding. Hemostasis achieved with direct pressure and silver nitrate. Wound measured [id number]. Tendon and distal tibia (lateral malleolus) exposed. I elected to NOT use amniofill today due to amount of silver nitrate used. White sponge applied over bone and tendon and black sponge on top. Erythema resolved Objective: Vital Signs Temp Pulse Resp BP Pulse Ox 36.8 C 63 18 125/67 H 97 12/24/17 08:38 12/24/17 08:38 12/24/17 08:38 12/24/17 08:38 12/24/17 08:38 Microbiology 12/22/17 09:08 Gram Stain - Final Leg - Tissue Laboratory Results 12/24/17 03:48 12/24/17 03:48 12/23/17 12/24/17 12/25/17 05:59 05:59 05:59 Intake Total 1305 1190 Output Total 1150 600 Balance 155 590 PT 14.4 SEC (12.0-15.0) 12/21/17 17:18 INR 1.10 (0.83-1.16) 12/21/17 17:18 ICD10 Worksheet Patient Problems: Problems Problem Status Onset Abscess or cellulitis of foot Acute
--- NOTE | 2017-12-24 12:14 | WOCRNPDOC ---
WOCRN Advanced Assessment Note - Skin Integrity Problem, Advanced Assess Left Lateral Ankle Abscess Dressing Type: Black Vac Foam, White Vac Foam, Wound Vac Dressing Description: Clean/Dry, Intact Exudate Amount: Moderate Exudate Color: Red Exudate Characteristic(s): Bloody Integumentary Issue Intervention: Dressing Changed Ne Wound Tissue: Intact Wound Bed Color: Red, Yellow Wound Bed Constitution: Red/[place] - Non Granular Tissue, Tendon Wound Edges: Well Defined Site Measurement - Head-to-Toe Length X Width X Depth (cm): 12x9x1 Skin Integrity Problem Comment: Vac changed today with Yeimi FAM. Upon removal of dressing, several small areas of bleeding noted. Pressure held to wound bed and silver nitrate applied. Ne wound skin prepped with skin prep and draped. White foam applied over achilles and lateral malleolus. Piece of large black foam applied over white. Good seal achieved at -125mmHg low, continuous suction. Patient with pain throughout but tolerated procedure well. Wound care will round again on 12/26 for next vac change.
--- NOTE | 2017-12-24 12:22 | WOCRNPDOC ---
WOCRN Advanced Assessment Note - Skin Integrity Problem, Advanced Assess Left Third Toe Abrasion Dressing Type: Allevyn Life Dressing Description: Clean/Dry, Intact Exudate Amount: None Integumentary Issue Intervention: Visualized Under Dressing Ne Wound Tissue: Blanching, Intact, Painful/Tender Wound Bed Color: Yellow Wound Bed Constitution: Mixed Loose & Adhered Slough/Eschar Wound Edges: Well Defined Site Measurement - Head-to-Toe Length X Width X Depth (cm): 1x0.8xslough Skin Integrity Problem Comment: Wound full of both yellow and adhered yellow slough. Attempted to clean and mechanically debride wound with NS and gauze but patient did not tolerate well. Will initiate orders for autolytic debridement and round again later this week to monitor progress.
--- NOTE | 2017-12-24 12:28 | ASMTCMCOM ---
CM Note CM Note Notes: 12/24/2017 Case Management Note Discussed pt during multi disciplinary rounds this morning. Faxed referral to [facility] for pricing on 6 week IV antibiotic course. [facility] to provide pricing for family to consider. Contacted Vanna at [facility] for wound vac info. Faxed referral to Vanna. Case Management to initiate wound vac application 48 hours prior to d/c. Notified rounding . Call from [facility] accepting pt. Case Management d/c poc: HC RN PT OT with a wound vac and IV abx pending cost for family. Pt may need SNF rehab for wound care and IV antibiotic needs. Case Management to follow. Date Signed: 12/24/2017 12:28 PM Electronically Signed By:Lorna Ramos RN
--- NOTE | 2017-12-24 12:31 | GIREPORT ---
[facility] Surgical Services - Endoscopy Department Patient Name: iKrk Rangel Procedure Date: 12/24/2017 10:55 AM Patient Type: Inpatient Attending MD/ ER Physician: Lang oGrdillo MD Procedure: Upper GI endoscopy Indications: Note dictated, consult appreciated. Foreign body in the esophagus. Providers: Lang Gordillo MD, FACG Referring MD: David Duarte MD; [facility] hospitalist service Medicines: Fentanyl 100 micrograms IV, Midazolam 2.5 mg IV Complications: No immediate complications. Description of Procedure: After obtaining informed consent, the endoscope was passed under direct vision. Throughout the procedure, the patient's blood pressure, pulse, and oxygen saturations were monitored continuously. The Endoscope was intro duced through the mouth, and advanced to the second part of duodenum. Findings: Food was found at the gastroesophageal junction. Removal was accomplish ed by pushing into the stomach. Hard to interpret if a stricture, ring or tig ht muscle present at the GE junction. Above this, presbyesophagus only Bio psies were taken with a cold forceps for histology from the upper and lower esophagus. Dilation was performed with a 48 Fr Savary. Two cratered gastric ulcers with no stigmata of bleeding were found in the gastric antrum. The largest lesion was 10 mm in largest dimension. Biop sies were taken with a cold forceps for Helicobacter pylori testing, as well as of the rim of the larger ulcer. The examined duodenum was normal. Estimated Blood Loss: none. Post Op Diagnosis: 1. Food found in distal esophagus; removed. Underlying cause somewhat unclear: ? Schatzki ring vs. stricture vs. eosinophilic esophagitis vs. achalasia. Regardless, now dilated fully (based on his size, age). 2. Gastric ulcers. Large, but bland. Almost certainly due to outpt. diclofenac, aspirin use. Recommendation: - Await pathology results to r/o eosinophilic esophagitis, H. pylori, a nd to check ulcers (but, almost certainly benign). - feed - generic PPI bid x 3 weeks, then daily senior living (stop outpt. ranitidin e). - outpt. baby aspirin o.k., but no further diclofenac - f/u PCP; if he has a future recurrence of dysphagia, please feel free to rerefer him back to see me. At that point, we would most likely first r epeat an EGD, in a more nonemergent setting, to try and establish diagnosis, before considering other studies, such as esophageal manometry, etc. I will sign off; please call if we can be of further help [phone] - Thank you for allowing me to help in the management of this patient. Attending Participation: I personally performed the entire procedure. Rand Croft MD Lang Gordillo MD 12/24/2017 12:30:42 PM This report has been signed electronicallyPeter MD Rand Number of Addenda: 0 Note Initiated On: 12/24/2017 10:55 AM [email or web address]
--- NOTE | 2017-12-24 12:56 | GCON ---
[f rep st] CONSULTATION GI INPATIENT CONSULTATION DATE OF CONSULTATION: 12/24/2017 HISTORY OF PRESENT ILLNESS: I was kindly requested to see the patient by Dr. Jacquelin Briscoe for a chief complaint of possible food impaction. He is an 82-year -old white male, who this morning feels as if he has something "stuck" in his lower esophagus. He is having difficulty handling water, secretions. He does state that he has a long history of dysphagia, usually once a week, which resolves on its own. He denies heartburn. Of note, his outpatient medications include diclofenac and baby aspirin. He is also on ranitidine 150 mg twice a day as an outpatient. He denies hematemesis, rigors, chills. Presently, he is in the hospital with extensive cellulitis and leg ulcerations. He underwent surgical debridement yesterday. Creatinine on admission was 2, but now down to 1.5. PAST MEDICAL HISTORY: 1. As above. 2. CAD with apparently 12 heart stents. 3. Hypertension. 4. Elevated lipids. 5. Thyroid disorder. 6. Otherwise, noncontributory. OUTPATIENT MEDICATIONS: Include the above. Inpatient medications include Pepcid 20 mg twice a day. SOCIAL HISTORY: He occasionally smokes a pipe. FAMILY HISTORY: Positive for heart disease. REVIEW OF SYSTEMS: Positive pertinent review of systems as per my HPI. Otherwise, a complete review of systems is negative. PHYSICAL EXAM: CONSTITUTIONAL: Nontoxic-appearing, pleasant gentleman. SKIN: Warm, dry. EYES: Pupils equal, round, reactive to light and accommodation. EAR, NOSE, MOUTH, THROAT: Moist mucosa, no masses seen. CARDIOVASCULAR: Normal S2, normal PMI. RESPIRATORY: Lungs clear to auscultation and percussion anteriorly. GASTROINTESTINAL: Abdomen soft, nontender. NEUROLOGIC : Grossly nonfocal, cranial nerves grossly intact. PSYCHIATRIC: Orientation, insight appropriate. MUSCULOSKELETAL: Strength grossly normal throughout, normal station. LABORATORY DATA: Laboratories include white count of 14,000. Normal coags. ASSESSMENT: Possible food impaction, with history of dysphagia. PLAN: 1. Urgent upper endoscopy. Certainly, with his leg infections, elevated creatinine on admission, coronary artery disease and heart stents, hypertension , elevated lipids, thyroid disorder, etc., he is at increased risk for this procedure. However, suspect the benefits outweigh the risks, and suspect he will do well. 2. Further management pending on the above. Thank you for allowing me to help in the care of this patient. /[id number]/MODL MTDD
[2017-12-24] MEDS: PANTOPRAZOLE SODIUM 40 MG TAB PO SCH ×2 (15:09→21:02)
--- NOTE | 2017-12-24 15:35 | PCMIDPN ---
Assessment/Plan: Assessment: Left leg abscess secondary to MSSA. Patient now on cefazolin. Patient seems to be tolerating this medication very well. There is a little bit of bleeding within the wound VAC. This does not seem to be brisk at all. Patient is on Plavix. Will continue the cefazolin for coverage and follow him closely. Plan: 1. Continue IV cefazolin. 2. Plan a 6 week course given the infections proximity to the bone. 12/24/17 15:32 12/24/17 15:33 Subjective: Patient is resting in his chair in his hospital room. and daughter in the room. He complains of a little bit of shooting pain in the left leg right where the wound VAC is. Otherwise no complaints. No rash. No fevers or chills. Objective: Cefazolin # 1 Vital Signs Temp Pulse Resp BP Pulse Ox 37 C 61 16 104/68 99 12/24/17 12:53 12/24/17 12:53 12/24/17 12:53 12/24/17 12:53 12/24/17 12:53 Microbiology 12/22/17 09:08 Gram Stain - Final Leg - Tissue Laboratory Results 12/24/17 03:48 12/24/17 03:48 12/23/17 12/24/17 12/25/17 05:59 05:59 05:59 Intake Total 1305 1190 300 Output Total 1150 600 300 Balance 155 590 0 C-Reactive Protein 72.8 mg/L (<10.0) H 12/22/17 04:13 - Physical Exam General Appearance: WD/WN, alert, no apparent distress, non-toxic Cardiac/Chest: regular rate, rhythm, No tachycardia Extremities: inflammation, No non-tender, No normal inspection Skin: normal color, warm/dry, No rash Neuro/Psych: alert, normal mood/affect, oriented x 3 ICD10 Worksheet Patient Problems: Problems Problem Status Onset Abscess or cellulitis of foot Acute
[2017-12-24] MEDS: ASPIRIN EC 81 MG TAB PO SCH (17:30)
[2017-12-24] MEDS: ENOXAPARIN 40 MG/0.4 ML SYR SC SCH (17:31)
[2017-12-24] MEDS: LEVOTHYROXINE 88 MCG TAB PO SCH (21:01)
[2017-12-24] MEDS: ATORVASTATIN CALCIUM 20 MG TAB PO SCH (21:02)
[2017-12-24] MEDS: Fluticasone/Vilanterol [Breo Ellipta 100-25 Mcg Inh] 1 EACH IH SCH (23:22)
[2017-12-25] MEDS: traMADol 50 MG TAB PO PRN (02:14)
[2017-12-25] MEDS: ceFAZolin 2 GM/SWFI 2 GM/20 ML SYR IVP SCH ×3 (05:43→21:42)
[2017-12-25] MEDS: ENOXAPARIN 40 MG/0.4 ML SYR SC SCH (08:45)
--- NOTE | 2017-12-25 09:05 | SOAPPROG ---
SOAP Progress Note Assessment/Plan: Assessment/Plan: 82yo M POD#3 s/p debridement of skin soft tissue, tendon and bone [id number] Esophageal stricture - s/p dilation by Dr. Gordillo yesterday. Symptoms initially improved but returned this morning Pain controlled No activity restrictions Wound vac change MWF - possible amniofill under vac next change Appreciate hospitalists Continue inpatient. Will need wound vac on discharge. Discussed with Dr. Borden. S: pain controlled. O: Sitting in chair, comfortable, NAD, transfered to bed independently Hammertoes bilaterally L second toe dressing in place - no erythema Wound vac removed - no blood in canister. No surrounding erythema. Objective: Vital Signs Temp Pulse Resp BP Pulse Ox 37.0 C 60 16 131/68 H 99 12/25/17 07:36 12/25/17 07:36 12/25/17 07:36 12/25/17 07:36 12/25/17 07:36 Microbiology 12/22/17 09:08 Gram Stain - Final Leg - Tissue Laboratory Results 12/24/17 03:48 12/24/17 03:48 12/24/17 12/25/17 12/26/17 05:59 05:59 05:59 Intake Total 1190 1260 360 Output Total 600 380 Balance 590 880 360 PT 14.4 SEC (12.0-15.0) 12/21/17 17:18 INR 1.10 (0.83-1.16) 12/21/17 17:18 ICD10 Worksheet Patient Problems: Problems Problem Status Onset Abscess or cellulitis of foot Acute
[2017-12-25] MEDS: ASPIRIN EC 81 MG TAB PO SCH (10:59)
[2017-12-25] MEDS: CLOPIDOGREL BISULFATE 75 MG TAB PO SCH (11:00)
[2017-12-25] MEDS: amLODIPine BESYLATE 5 MG TAB PO SCH (11:00)
[2017-12-25] MEDS: predniSONE 20 MG TAB PO SCH (11:01)
[2017-12-25] MEDS: CARVEDILOL 6.25 MG TAB PO SCH ×2 (11:01→18:06)
[2017-12-25] MEDS: PANTOPRAZOLE SODIUM 40 MG TAB PO SCH ×2 (11:01→21:42)
--- NOTE | 2017-12-25 12:45 | HOSPPROG ---
Hospitalist Progress Note Assessment/Plan: 82-year-old man with a history significant for coronary artery disease and ischemic cardiomyopathy is admitted with a infected lower extremity ulcer requiring debridement this morning. This morning complaining of difficulty swallowing, has not taken anything solid in today and cannot keep any water in. Says he has had difficulty eating over the last 2 days but has not noted symptoms like today and thought it was due to the medications he is on. # dysphagia: Unclear etiology patient's abdomen fairly soft, discussed with GI they will see him this morning. * Status post EGD with to gastric ulcers and some food stuck at the GE junction which was passed into the stomach. * Probable esophagitis. * Continue PPI, may take a few days for symptoms to completely resolve should stick to soft foods # left lower extremity ulceration and cellulitis status post I and D by Dr. Khan. * Antibiotics per ID * MSSA on wound * Wound care and wound VAC # coronary artery disease with ischemic cardiomyopathy status post multiple stents. He is followed by [facility] and had a recent stress test which showed some almaz-infarct ischemia. Dr. Mistry did a cardiac clearance prior to surgery and he currently is doing well from a cardiac standpoint * Continue telemetry monitoring * Patient currently asymptomatic * Resume medications # acute kidney injury on admission with a creatinine of 2.0, improved today and back to baseline * Continue to Follow renal function * Resume Arb soon, blood pressure is still rather low. Once blood pressure is stable can restart ARB # hypertension # dyslipidemia # peripheral vascular disease Subjective: Complains of ongoing symptoms with his abdomen. Trouble eating solid foods Objective: Vital Signs Temp Pulse Resp BP Pulse Ox 36.8 C 63 16 99/55 L 91 L 12/25/17 12:00 12/25/17 12:00 12/25/17 12:00 12/25/17 12:00 12/25/17 12:00 Microbiology 12/22/17 09:08 Gram Stain - Final Leg - Tissue Laboratory Results 12/24/17 03:48 12/24/17 03:48 12/24/17 12/25/17 12/26/17 05:59 05:59 05:59 Intake Total 1190 1260 360 Output Total 600 380 Balance 590 880 360 PT 14.4 SEC (12.0-15.0) 12/21/17 17:18 INR 1.10 (0.83-1.16) 12/21/17 17:18 - Physical Exam Constitutional: no apparent distress Eyes: PERRL Ears, Nose, Mouth, Throat: moist mucous membranes Cardiovascular: regular rate and rhythym Respiratory: no respiratory distress, clear to auscultation Gastrointestinal: normoactive bowel sounds, soft, non-tender abdomen Genitourinary: no bladder fullness Skin: warm, other (Wound VAC on left ankle) Neurologic: AAOx3 Psychiatric: interacting appropriately ICD10 Worksheet Patient Problems: Problems Problem Status Onset Abscess or cellulitis of foot Acute
--- NOTE | 2017-12-25 14:29 | PCMIDPN ---
Assessment/Plan: Assessment/Plan: 1. RLE cellulitis/wound infection with debridement down to bone/exposed tendon: - Cx with MSSA - On Ancef -patient, family updated on lab/cx results - patient, family updated on plan of care, atbx, etc -Given need to extend debridement down to bone would recommend 6 weeks iv atbx. -wbc trending down -creatinine 0.9 - blood cx ngtd - will order picc line and do interagency. - discussed atbx options with patient, family. they want to do it at home, and continuous infusion - care coordinated with case management regarding atbx, duration, plan. Meds ancef 2g q8= 12/23/17 s/p unasyn vanco-----see above for changes. Subjective: afebrile. feels better. denies sob. spitting up foaming material after he attempts eat. deneis pain. denies abd pain or diarrhea. Objective: Vital Signs Temp Pulse Resp BP Pulse Ox 36.8 C 63 16 99/55 L 91 L 12/25/17 12:00 12/25/17 12:00 12/25/17 12:00 12/25/17 12:00 12/25/17 12:00 Microbiology 12/22/17 09:08 Gram Stain - Final Leg - Tissue Laboratory Results 12/24/17 03:48 12/24/17 03:48 12/24/17 12/25/17 12/26/17 05:59 05:59 05:59 Intake Total 1190 1260 360 Output Total 600 380 Balance 590 880 360 C-Reactive Protein 72.8 mg/L (<10.0) H 12/22/17 04:13 - Physical Exam General Appearance: alert, no apparent distress Respiratory: lungs clear Cardiac/Chest: regular rate, rhythm Extremities: swelling Abdomen: normal bowel sounds, non-tender, soft, No distended Skin: erythema (LLE: mild erythema worse when leg dependent but improves with elevation. wound vac noted. third toe wound with dressing. slight warmth involving leg) - Time Spent With Patient Time Spent with Patient: greater than 35 minutes Time Spent with Patient: Greater than 35 minutes spent on this patients care, greater than 50% of time spent counseling, educating, and coordinating care regarding the above mentioned plan. ICD10 Worksheet Patient Problems: Problems Problem Status Onset Abscess or cellulitis of foot Acute
[2017-12-25] MEDS ORDERED: ALTEPLASE 2 MG VIAL IVP PRN (14:30)
--- NOTE | 2017-12-25 14:35 | PDIAF ---
- Diagnosis Diagnosis: LLE wound infection down to bone Code Status: Full Code - Medication Management Discharge Medications: Medications to Continue on Transfer Aspirin [Aspirin 81mg (OTC)] 81 mg PO HS 04/08/12 [Last Taken 12/20/17] Carvedilol [Coreg (RX)] 6.25 mg PO BIDMEAL 04/08/12 [Last Taken 12/21/17] Clopidogrel Bisulfate [Plavix (RX)] 75 mg PO DAILY 04/08/12 [Last Taken 12/21/17 ] Diclofenac Sodium [Voltaren 75 MG (RX)] 75 mg PO DAILY 04/08/12 [Last Taken 03/04] Levothyroxine [Synthroid 88 mcg (RX)] 88 mcg PO HS 04/08/12 [Last Taken 12/20/17 ] Losartan/Hydrochlorothiazide [Losartan-Hctz 100-25 Mg Tab] 0.5 each PO BID 04/08 [Last Taken 12/21/17] Ranitidine HCl [Ranitidine HCl 150 mg] 150 mg PO BID 04/08/12 [Last Taken ] Atorvastatin Calcium [Lipitor 20 mg (*)] 20 mg PO HS 08/15/15 [Last Taken ] Fluticasone/Vilanterol [Breo Ellipta 200-25 Mcg INH] 1 each IH HS 08/15/15 [ Last Taken 12/18/17] Acetaminophen [Tylenol 325mg (*)] 650 mg PO Q6 PRN 12/21/17 [Last Taken 12/19/17 ] Sulfamethox/Tmp 800/160 mg [Bactrim Ds] 1 tab PO BID 12/21/17 [Last Taken ] amLODIPine BESYLATE [Norvasc 5 mg (*)] 5 mg PO DAILY 12/21/17 [Last Taken ] predniSONE 20 mg PO DAILY 12/21/17 [Last Taken 12/20/17] Legal Job Titles Antibiotics: Ancef 6gm IV over 24 hours, via continous infusion. Legal Job Titles Antibiotic Stop Date: 02/04/18 Discharge Medications: Refer to the Discharge Home Medication list for PRN reason. PICC Care - Routine: Yes - Labs/Radiology CBC w/diff Date: 12/31/17 (q mondays) CMP Date: 12/31/17 (q mondays) CRP Date: 12/31/17 (qm) Call or Fax Lab and Imaging Results to: fax to Dr. Antonio- [phone] - Follow Up Care Current Providers and Referrals: David Duarte MD [Primary Care Provider] - Abraham Antonio MD [Medical Doctor] - follow up in 1 week ()
[2017-12-25] MEDS: LEVOTHYROXINE 88 MCG TAB PO SCH (21:42)
[2017-12-25] MEDS: ATORVASTATIN CALCIUM 20 MG TAB PO SCH (21:42)
[2017-12-25] MEDS: Fluticasone/Vilanterol [Breo Ellipta 100-25 Mcg Inh] 1 EACH IH SCH (22:53)
[2017-12-26] MEDS: ceFAZolin 2 GM/SWFI 2 GM/20 ML SYR IVP SCH ×2 (05:59→13:17)
[2017-12-26 06:40] LABS: PLATELET COUNT 151 10^3/uL (150-400)
--- NOTE | 2017-12-26 08:48 | PCMIDPN ---
Assessment/Plan: Left lower extremity cellulitis s/p debridement 12/22/2017 cultures with MSSA. Tissue destruction down to bone. Today wound VAC surrounded by mild erythema, surprising lack of pain --continue cefazolin, stop date 02/04/18 --blood cultures 12/21 remain negative --DC okay from ID standpoint Medications Cefazolin 2 g IV Q 8 Subjective: Denies diarrhea, itching, rash. Ready to go home Objective: Vital Signs Temp Pulse Resp BP Pulse Ox 36.4 C 64 17 116/69 96 12/26/17 07:33 12/26/17 07:33 12/26/17 07:33 12/26/17 07:33 12/26/17 07:33 Microbiology 12/22/17 09:08 Gram Stain - Final Leg - Tissue Laboratory Results 12/26/17 06:20 12/26/17 06:20 12/25/17 12/26/17 12/27/17 05:59 05:59 05:59 Intake Total 1260 1300 Output Total 380 Balance 880 1300 C-Reactive Protein 72.8 mg/L (<10.0) H 12/22/17 04:13 - Physical Exam General Appearance: alert, no apparent distress EENT: No thrush Respiratory: lungs clear, No accessory muscle use Neck: supple Cardiac/Chest: regular rate, rhythm Extremities: inflammation (Left lateral ankle wound VAC in place with mild surrounding erythema. Very mild associated edema as well) Male Genitalia: No ghotra Skin: warm/dry, No diaphoresis, No rash Neuro/Psych: alert, normal mood/affect, oriented x 3 - Line/s RUE PICC Lines: No drainage, No erythema ICD10 Worksheet Patient Problems: Problems Problem Status Onset Abscess or cellulitis of foot Acute
[2017-12-26] MEDS: ENOXAPARIN 40 MG/0.4 ML SYR SC SCH (08:49)
[2017-12-26] MEDS: CARVEDILOL 6.25 MG TAB PO SCH (08:50)
[2017-12-26] MEDS: amLODIPine BESYLATE 5 MG TAB PO SCH (08:50)
[2017-12-26] MEDS: CLOPIDOGREL BISULFATE 75 MG TAB PO SCH (08:50)
[2017-12-26] MEDS: PANTOPRAZOLE SODIUM 40 MG TAB PO SCH (08:50)
[2017-12-26] MEDS: ASPIRIN EC 81 MG TAB PO SCH (08:50)
[2017-12-26] MEDS: predniSONE 20 MG TAB PO SCH (08:50)
--- NOTE | 2017-12-26 09:21 | HOSPPROG ---
Hospitalist Progress Note Assessment/Plan: 82-year-old man with a history significant for coronary artery disease and ischemic cardiomyopathy is admitted with a infected lower extremity ulcer requiring debridement this morning. This morning complaining of difficulty swallowing, has not taken anything solid in today and cannot keep any water in. Says he has had difficulty eating over the last 2 days but has not noted symptoms like today and thought it was due to the medications he is on. # dysphagia: S/P EGD- gastric ulcers and some food stuck at the GE junction which was passed into the stomach s/p dilation. Probable esophagitis. * Continue PPI * D/C NSAID's, but will cont ASA given CAD hx * Speech / swallow eval requested # left lower extremity ulceration and cellulitis status post I and D by Dr. Khan. MSSA on wound Cx. * cont Ancef per ID * Wound care and will need home wound VAC # CAD / ICM s/p multiple stents. He is followed by [facility] and had a recent stress test which showed some almaz-infarct ischemia. Dr. Mistry did a cardiac clearance prior to surgery and he currently is doing well from a cardiac standpoint * Continue telemetry monitoring * Patient currently asymptomatic * Resume medications # acute kidney injury on admission with a creatinine of 2.0, improved today and back to baseline * Continue to Follow renal function * Resume Arb soon, blood pressure is still rather low. Once blood pressure is stable can restart ARB # hypertension # dyslipidemia # peripheral vascular disease # dvt pplx - lovenox # dispo - will need home atbx and wound vac, CM involved Subjective: Pt feels well. Denies CP or SOB. No pain in leg. He is ambulating. No fevers. Tolerating food better, ate a muffin for breakfast. Reports some difficulty with thin liquids. Objective: Vital Signs Temp Pulse Resp BP Pulse Ox 36.4 C 64 17 116/69 96 12/26/17 07:33 12/26/17 07:33 12/26/17 07:33 12/26/17 07:33 12/26/17 07:33 Microbiology 12/22/17 09:08 Gram Stain - Final Leg - Tissue Laboratory Results 12/26/17 06:20 12/26/17 06:20 12/25/17 12/26/17 12/27/17 05:59 05:59 05:59 Intake Total 1260 1300 Output Total 380 Balance 880 1300 PT 14.4 SEC (12.0-15.0) 12/21/17 17:18 INR 1.10 (0.83-1.16) 12/21/17 17:18 - Physical Exam Constitutional: no apparent distress Eyes: PERRL Ears, Nose, Mouth, Throat: moist mucous membranes Cardiovascular: regular rate and rhythym Respiratory: no respiratory distress, clear to auscultation Gastrointestinal: normoactive bowel sounds, soft, non-tender abdomen Skin: warm, other (LLE distal erythema and edema, wound vac functioning) Musculoskeletal: full muscle strength Neurologic: AAOx3 Psychiatric: interacting appropriately ICD10 Worksheet Patient Problems: Problems Problem Status Onset Abscess or cellulitis of foot Acute
[2017-12-26 11:21] VITALS: BP 104/59
--- NOTE | 2017-12-26 13:38 | WOCRNPDOC ---
WOCRN Advanced Assessment Note - Skin Integrity Problem, Advanced Assess Left Lateral Ankle Abscess Dressing Type: Black Vac Foam, White Vac Foam, Wound Vac Dressing Description: Clean/Dry, Intact Exudate Amount: Minimal Exudate Color: Reddish/Yellow Exudate Characteristic(s): Serosanguinous Integumentary Issue Intervention: Dressing Changed Almaz Wound Tissue: Erythema, Intact Wound Bed Color: Black (small areas from prior application of silver nitrate), [place], Yellow Wound Bed Constitution: Red/[place] - Non Granular Tissue, Tendon, Bone Wound Edges: Attached, Well Defined Site Measurement - Head-to-Toe Length X Width X Depth (cm): 12x8x1 Skin Integrity Problem Comment: Wound bed cleaned with NS and gauze. Skin prep applied to almaz-wound skin and draped. SARWAT Jalloh applied amniofill to wound bed. White foam cut and placed in wound bed to cover lateral malleolus and distal structures and achilles tendon. Medium black simplace foam cut to fit wound bed and placed over white foam. Good seal achieved at -125mmHg low, continuous suction. If patient remains hospitalized, wound care will round again next week as this product should remain in the wound bed, undisturbed, for 7 days.
--- NOTE | 2017-12-26 14:54 | PDIAF ---
- Diagnosis Diagnosis: LLE wound infection down to bone Code Status: Full Code - Medication Management Discharge Medications: Medications to Continue on Transfer Aspirin [Aspirin 81mg (*)] 81 mg PO HS 04/08/12 [Last Taken 12/20/17] Carvedilol [Coreg (*)] 6.25 mg PO BIDMEAL 04/08/12 [Last Taken 12/21/17] Clopidogrel Bisulfate [Plavix (*)] 75 mg PO DAILY 04/08/12 [Last Taken 12/21/17] Levothyroxine [Synthroid 88 mcg (*)] 88 mcg PO HS 04/08/12 [Last Taken 12/20/17] Ranitidine HCl [Ranitidine HCl 150 mg] 150 mg PO BID 04/08/12 [Last Taken ] Atorvastatin Calcium [Lipitor 20 mg (*)] 20 mg PO HS 08/15/15 [Last Taken ] Fluticasone/Vilanterol [Breo Ellipta 200-25 Mcg INH] 1 each IH HS 08/15/15 [ Last Taken 12/18/17] Acetaminophen [Tylenol 325mg (*)] 650 mg PO Q6 PRN 12/21/17 [Last Taken 12/19/17 ] amLODIPine BESYLATE [Norvasc 5 mg (*)] 5 mg PO DAILY 12/21/17 [Last Taken ] Pantoprazole Sodium [Protonix 40mg (*)] 40 mg PO BID #60 tab 12/26/17 [Last Taken Unknown] predniSONE 10 mg PO DAILY #4 tablet 12/26/17 [Last Taken Unknown] Lens Gauger Antibiotics: Ancef 6gm IV over 24 hours, via continous infusion. Longterm Antibiotic Stop Date: 02/04/18 Discharge Medications: Refer to the Discharge Home Medication list for PRN reason. PICC Care - Routine: Yes - Orders Services needed: Home Care, Registered Nurse, Physical Therapy, Occupational Therapy Home Care Face to Face: I certify that this patient was under my care and that I had the required [id number] encounter meeting the encounter requirements on the discharge day. My findings support the fact that the patient is homebound as defined in Home Care Face to Face Continued: CMS Chapter 7 Medicare Benefits Manual 30.1.1 , The condition of the patient is such that there exists a normal inability to leave home and consequently, leaving home would require a considerable and taxing effort. Diet Recommendation: no restrictions on diet Additional Instructions: Stop all anti-inflammatories. Continue Protonix to reduce acid in the stomach. Decrease the Prednisone to 10 mg daily for 4 days, then stop it completely. Complete the IV antibiotics as directed by ID. Follow up with Dr. Antonio at [facility] for infectious diseases as planned. Wound care After follow-up with Dr. Borden's office next Sunday, 01/01, vac changes MWF White foam or contact layer to tendons and bony structures Medium black simplace foam to wound bed over white foam/contact layers Wound vac to low, continuous suction at -125mmHg Tish Gunter RN, Wound Care Team [facility]- homecare - Labs/Radiology CBC w/diff Date: 12/31/17 (q mondays) CMP Date: 12/31/17 (q mondays) CRP Date: 12/31/17 (qmond) Call or Fax Lab and Imaging Results to: fax to Dr. Antonio- [phone] - Follow Up Care Current Providers and Referrals: David Duarte MD [Primary Care Provider] - Abraham Antonio MD [Medical Doctor] - follow up in 1 week ()
--- NOTE | 2017-12-26 17:00 | SOAPPROG ---
SOAP Progress Note Assessment/Plan: Assessment/Plan: 82yo M POD#4 s/p debridement of skin soft tissue, tendon and bone [id number] Esophageal stricture - symptoms improved today Pain controlled No activity restrictions Wound vac changed with Amniofill under vac - will remain in place x 1 week uninterrupted Appreciate hospitalists DC per hospitalists. OK to go from wound standpoint Will need wound vac on discharge. Discussed with Dr. Borden. S: pain controlled. O: Laying in bed comfortable NAD Hammertoes bilaterally L second toe dressing in place - no erythema Wound vac changed - see wound RN note for dimensions. Tendon and small amt bone exposed. Min surrounding erythema. Amniofill applied 500mg [id number], expiration 09/17/22. Wound vac reapplied to suction Objective: Vital Signs Temp Pulse Resp BP Pulse Ox 36.9 C 68 12 104/59 L 93 12/26/17 11:19 12/26/17 11:19 12/26/17 11:19 12/26/17 11:19 12/26/17 11:19 Microbiology 12/22/17 09:08 Gram Stain - Final Leg - Tissue Laboratory Results 12/26/17 06:20 12/26/17 06:20 12/25/17 12/26/17 12/27/17 05:59 05:59 05:59 Intake Total 1260 1300 Output Total 380 300 Balance 880 1300 -300 PT 14.4 SEC (12.0-15.0) 12/21/17 17:18 INR 1.10 (0.83-1.16) 12/21/17 17:18 ICD10 Worksheet Patient Problems: Problems Problem Status Onset Abscess or cellulitis of foot Acute
--- NOTE | 2017-12-26 17:03 | PDIAF ---
- Diagnosis Diagnosis: LLE wound infection down to bone Code Status: Full Code - Medication Management Discharge Medications: Medications to Continue on Transfer Aspirin [Aspirin 81mg (*)] 81 mg PO HS 04/08/12 [Last Taken 12/20/17] Carvedilol [Coreg (*)] 6.25 mg PO BIDMEAL 04/08/12 [Last Taken 12/21/17] Clopidogrel Bisulfate [Plavix (*)] 75 mg PO DAILY 04/08/12 [Last Taken 12/21/17] Levothyroxine [Synthroid 88 mcg (*)] 88 mcg PO HS 04/08/12 [Last Taken 12/20/17] Ranitidine HCl [Ranitidine HCl 150 mg] 150 mg PO BID 04/08/12 [Last Taken ] Atorvastatin Calcium [Lipitor 20 mg (*)] 20 mg PO HS 08/15/15 [Last Taken ] Fluticasone/Vilanterol [Breo Ellipta 200-25 Mcg INH] 1 each IH HS 08/15/15 [ Last Taken 12/18/17] Acetaminophen [Tylenol 325mg (*)] 650 mg PO Q6 PRN 12/21/17 [Last Taken 12/19/17 ] amLODIPine BESYLATE [Norvasc 5 mg (*)] 5 mg PO DAILY 12/21/17 [Last Taken ] Pantoprazole Sodium [Protonix 40mg (*)] 40 mg PO BID #60 tab 12/26/17 [Last Taken Unknown] predniSONE 10 mg PO DAILY #4 tablet 12/26/17 [Last Taken Unknown] Associate Web Developer Antibiotics: Ancef 6gm IV over 24 hours, via continous infusion. Custodial Antibiotic Stop Date: 02/04/18 Discharge Medications: Refer to the Discharge Home Medication list for PRN reason. PICC Care - Routine: Yes - Orders Services needed: Home Care, Registered Nurse, Physical Therapy, Occupational Therapy Home Care Face to Face: I certify that this patient was under my care and that I had the required [id number] encounter meeting the encounter requirements on the discharge day. My findings support the fact that the patient is homebound as defined in Home Care Face to Face Continued: CMS Chapter 7 Medicare Benefits Manual 30.1.1 , The condition of the patient is such that there exists a normal inability to leave home and consequently, leaving home would require a considerable and taxing effort. Diet Recommendation: no restrictions on diet Additional Instructions: Stop all anti-inflammatories. Continue Protonix to reduce acid in the stomach. Decrease the Prednisone to 10 mg daily for 4 days, then stop it completely. Complete the IV antibiotics as directed by ID. Follow up with Dr. Antonio at [facility] for infectious diseases as planned. Wound care - wound vac dressing will NOT be changed until 01/[address] Borden's office. Please monitor daily to ensure functioning and to suction. After follow-up with Dr. Borden's office next Sunday, 01/01, vac changes MWF After 01/01 - White foam or contact layer to tendons and bony structures Medium black simplace foam to wound bed over white foam/contact layers Wound vac to low, continuous suction at -125mmHg Tish Gunter RN, Wound Care Team [facility] [phone] [employer] [phone]..... [employer] Wound vac settings: continuous at 125mmHg - Labs/Radiology CBC w/diff Date: 12/31/17 (q mondays) CMP Date: 12/31/17 (q mondays) CRP Date: 12/31/17 (qmond) Call or Fax Lab and Imaging Results to: fax to Dr. Antonio- [phone] - Follow Up Care Current Providers and Referrals: Coty Borden MD [Medical Doctor] - follow up in 1 week David Duarte MD [Primary Care Provider] - Abraham Antonio MD [Medical Doctor] - follow up in 1 week ()
--- NOTE | 2017-12-26 23:22 | GDS ---
[f rep st] DISCHARGE SUMMARY DISCHARGE DIAGNOSES: 1. Left lower extremity cellulitis with ulceration, status post incision and drainage. 2. Dysphagia likely secondary to esophagitis. 3. Gastric ulcers. 4. Acute kidney injury, resolved. 5. Coronary artery disease, status post multiple stents, stable. 6. Hypertension. 7. Dyslipidemia. 8. Peripheral vascular disease. CONSULTANTS: 1. Dr. Coty Borden, General Surgery. 2. Dr. Tyler Mistry, Cardiology. 3. Dr. Lang Gordillo, Gastroenterology. PROCEDURES: 1. Operative debridement of the skin and soft tissue of the left lower extremity wound to the level of tendon and bone with Achilles extensor tendon and tibia exposed wound VAC in place. 2. EGD performed by Dr. Lang Gordillo on December 24, 2017, showed food lodged in the distal esophagus, sta tus post dilation, and gastric ulcers. Pathology is pending. HISTORY OF DETAILS: Please see the history and physical dated December 21, 2017. In brief, the patient is an 82-year-old male with an extensive cardiac history who presented to the emergency department wi th left lower extremity ulcerations. He was found to have progressing cellulitis and after having fa iled outpatient Bactrim therapy he was admitted to the hospital for further management. MRI was perf ormed and was negative for abscess or osteomyelitis. He underwent operative debridement as above. His wound culture grew methicillin sensitive Staphylococcus aureus, and he has been treated with IV A ncef. This will be continued at discharge through February 04, given the extent of his infection down t o the tendon and bone. A wound VAC was placed, and he was discharged home with ongoing wound VAC and wound care. He did have an acute kidney injury with a creatinine of 2.0 on arrival. He received IV fluids. His creatinine returned to baseline. He then developed some dysphagia symptoms and underwe nt upper endoscopy which showed food stuck in the distal esophagus. He underwent esophageal dilation . The etiology of this was unclear, though possibly secondary to Schatzki's ring versus stricture ve rsus eosinophilic esophagitis versus achalasia. In addition, gastric ulcers were noted, though these were bland, nonbleeding. This is almost certainly due to his outpatient anti-inflammatory and aspir in use. Anti-inflammatories were discontinued on discharge, though he will continue daily aspirin, g iven his significant cardiac disease. In addition, he is started on twice daily PPI therapy for 1 mo cox south and can deescalate to once daily after that. In addition, on discharge, I noticed he was taking prednisone 20 mg daily. It looks like he had an o utpatient prescription for this for a short burst of therapy, though this has been continued during t he hospitalization. It is unclear to me why he is on prednisone. I will rapidly taper him off with 10 mg daily for 4 more days, then stop. He is to follow up with his outpatient primary care provider for ongoing issues. DISPOSITION: Patient is discharged home with home health care and IV home infusion services for ongo ing Ancef therapy. In addition, he will have PT and OT. DISCHARGE MEDICATIONS: Please see [facility] for completed outpatient medication list. New medications on discharge include: 1. Ancef 6 g intravenously over 24 hours via continuous infusion through February 04, 2018. 2. Protonix 40 mg p.o. twice daily, #60, no refills. 3. Prednisone 10 mg p.o. daily #4 tablets and then stop. He will continue all other outpatient medications as previously prescribed. Discontinued medications include diclofenac, losartan/hydrochlorothiazide, and Bactrim. /[id number]/MODL
--- NOTE | 2017-12-27 09:34 | ASDISCHSUM ---
Discharge Information Plan Status:Home with Home Health Medically Cleared to Leave: Discharge Date:12/26/2017 05:12 PM CM D/C Disposition:Home Health Service ADT D/C Disposition:Home Health Service Projected Discharge Date:12/26/2017 12:00 AM Transportation at D/C: Discharge Delay Reason: Follow-Up Date:12/26/2017 12:00 AM Discharge Slot: Final Diagnosis:CAD, L LE Cellulitis Placement Information Referral Type:*Home Health Care Services Referral ID:[id number] Provider Name:[facility] Address 1:[address] Address 2: City:[place] Selection Factors: State:[place] Referral Type:Home Infusion Referral ID:[id number] Provider Name:[facility] Address 1:[address] Address 2: City:[place] Selection Factors: State:[place] Patient Contact Information Contact Name:LEO Relationship: Address:[address] Work Phone: [facility]:[place] Alternate Phone: [facility]/Zip Code:[place] [address] Email: Financial Information Financial Class:Medicare Primary Plan Desc:MEDICARE INPATIENT Primary Plan Number:[id number] Secondary Plan Desc:KENN MARCIANO ARAUJO Secondary Plan Number:[id number] Assessment Information [facility] CM Progress Note CM Note CM Note Notes: Pt admitted with LLE ulcerations & cellulitis requiring surgical debridement with wound vac placement. 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 PT recommending HHC. OT ordered; awaiting eval. Attempted to meet with pt to discuss HHC, but pt was unavailable. CM will follow up tomorrow. Plan TBD Date Signed: 12/22/2017 05:50 PM Electronically Signed By:Juliana Ayala RN [facility] CM Progress Note CM Note CM Note Notes: Patient has had HC in the past. didn't know agency's name. [place] that he would need PT and RN for wound care. Has a wound vac. Referrals sent to [facility] and [facility]. Not sure about the HC's staffing abilities. Date Signed: 12/23/2017 04:28 PM Electronically Signed By:Shaunna Vinson LCSW [facility] CM Progress Note CM Note CM Note Notes: 12/24/2017 Case Management Note Discussed pt during multi disciplinary rounds this morning. Faxed referral to Nicole for pricing on 6 week IV antibiotic course. [employer] to provide pricing for family to consider. Contacted Vanna at [facility] for wound vac info. Faxed referral to Vanna. Case Management to initiate wound vac application 48 hours prior to d/c. Notified jarocho CAMARGO. Call from [facility] accepting pt. Case Management d/c poc: [facility] RN PT OT with a wound vac and IV abx pending cost for family. Pt may need SNF rehab for wound care and IV antibiotic needs. Case Management to follow. Date Signed: 12/24/2017 12:28 PM Electronically Signed By:Lorna Ramos RN Case Management Discharge Plan Note Case Management Discharge Discharge Order Complete? Answers: Yes Patient to Obtain Answers: Other Notes: [employer] for home infusi on Medications Transportation Arranged Answers: Family/Friends Faxed Final Orders Answers: Yes Family Notified Answers: Yes Notes: daughter, Angelique present Discharge Comments Notes: Pt will dc home today where he lives w/. Pt's daughter, angelique, will be staying with them initially. He will have wound vac which was released today (serial # [id number]), release form signed and faxed to [facility], discussed w/Vanna at [facility]. Pt will be followed by [facility]. Notified Constance and Romana at [facility] as well as Naida [facility] [employer] Nicole will deliver by and [facility] able to see pt this evening. Discussed w/ and RN who will call report. Date Signed: 12/26/2017 04:00 PM Electronically Signed By:Mel Clay RN Intervention Information Intervention Type:*IM-Signed Date of Service:12/26/2017 03:28 PM Patient Type:Inpatient Staff Member:Melani Clements Hours: Discipline: Severity: Comment:
== END 2017-12-26 17:12 | disposition home health service (06) | DRG 593 ==
LOC: F3E 16:03 → OBSVTOIN 16:36 → F2W 12-22 10:33
PROVIDERS: ADMIT Hospitalist; ATTEND Hospitalist
PROC: 0JDP3ZZ Extraction of Left Lower Leg Subcutaneous Tissue and Fascia, Percutaneous Approach (ICD-10-PCS; principal; 2017-12-22 08:00)
PROC: 0DB38ZX Excision of Lower Esophagus, Via Natural or Artificial Opening Endoscopic, Diagnostic (ICD-10-PCS; 2017-12-24)
PROC: 0DB68ZX Excision of Stomach, Via Natural or Artificial Opening Endoscopic, Diagnostic (ICD-10-PCS; 2017-12-24)
PROC: 0D758ZZ Dilation of Esophagus, Via Natural or Artificial Opening Endoscopic (ICD-10-PCS; 2017-12-24)
PROC: 02HV33Z Insertion of Infusion Device into Superior Vena Cava, Percutaneous Approach (ICD-10-PCS; 2017-12-25)
DX: L97.908 Non-pressure chronic ulcer of unspecified part of unspecified lower leg with other specified severity (principal); L03.116 Cellulitis of left lower limb; N17.9 Acute kidney failure, unspecified; B95.61 Methicillin susceptible Staphylococcus aureus infection as the cause of diseases classified elsewhere; K25.9 Gastric ulcer, unspecified as acute or chronic, without hemorrhage or perforation; T39.395A Adverse effect of other nonsteroidal anti-inflammatory drugs [NSAID], initial encounter; T39.015A Adverse effect of aspirin, initial encounter; R13.10 Dysphagia, unspecified; T18.128A Food in esophagus causing other injury, initial encounter; K20.9 Esophagitis, unspecified; D62 Acute posthemorrhagic anemia; I73.9 Peripheral vascular disease, unspecified; I25.10 Atherosclerotic heart disease of native coronary artery without angina pectoris; I10 Essential (primary) hypertension; E78.5 Hyperlipidemia, unspecified; E03.9 Hypothyroidism, unspecified; I25.2 Old myocardial infarction; Z95.5 Presence of coronary angioplasty implant and graft; Z95.810 Presence of automatic (implantable) cardiac defibrillator
CPT/HCPCS: 92610-GN; 97116-GP; 97161-GP; 97165-GO; 97530-GO; 97530-GP; 97535-GO; C1751; G8978-GP-CJ; G8979-GP-CI; G8980-GP-CI; G8987-GO-CK; G8988-GO-CI; G8996-GN-CI; G8997-GN-CI; G8998-GN-CI; J0295; J0690; J1650; J2250; J2405; J2704; J3010; J3370; J7512

== ENCOUNTER 2017-12-26 21:59 | Emergency (ER) | payer OTHER ==
--- NOTE | 2017-12-26 22:08 | EDPHY ---
H & P Stated Complaint: dc at 1700hr today from floor. wound vac is not working Time Seen by Provider: 12/26/17 22:08 HPI/ROS: HPI CHIEF COMPLAINT: Problem with wound VAC HISTORY OF PRESENT ILLNESS: Pleasant 82-year-old male, recently discharged from the hospital today around 5 o'clock left lower extremity cellulitis all the way down to the bone now has a back, presents to the emergency room stating that his wound VAC has an air leak it is not working appropriately. Apparently there is leak. He was just discharged 5 o'clock. Wound VAC is on the lateral left lower extremity. Past Medical History: Left lower extremity wound. Cellulitis. Past Surgical History: Left lower extremity wound management, debridement. Social History: Lives locally denies drugs alcohol. Family History: Noncontributory ROS REVIEW OF SYSTEMS: A comprehensive 10 point review of systems is otherwise negative aside from elements mentioned in the history of present illness. Exam Constitutional appears well nontoxic no acute distress, triage nursing summary reviewed, vital signs reviewed, awake/alert. Eyes normal conjunctivae and sclera, EOMI, PERRLA. HENT normal inspection, atraumatic, moist mucus membranes, no epistaxis, neck supple/ no meningismus, no raccoon eyes. Respiratory clear to auscultation bilaterally, normal breath sounds, no respiratory distress, no wheezing. Cardiovascular rate normal, regular rhythm, no murmur, no edema, distal pulses normal. Gastrointestinal soft, non-tender, no rebound, no guarding, normal bowel sounds, no distension, no pulsatile mass. Genitourinary no CVA tenderness. Musculoskeletal left lower extremity; lateral aspect of the left distal tibia there is a rather large wound with wound VAC in place but no correct seal, no midline vertebral tenderness, full range of motion, no calf swelling, no tenderness of extremities, no meningismus, good pulses, neurovascularly intact. Skin pink, warm, & dry, no rash, skin atraumatic. Neurologic awake, alert and oriented x 3, AAOx3, moves all 4 extremities equally, motor intact, sensory intact, CN II-XII intact, normal cerebellar, normal vision, normal speech. Psychiatric normal mood/affect. Heme/Lymph/Immune no lymphadenopathy. Differential Diagnosis: Includes but is not limited to in a particular order left lower extremity wound, feel your wound VAC. Medical Decision Making: Plan for this patient will contact Stacey Borden about this patient's wound VAC., but with a definitive plan for treatment for him. Re-evaluation: 2225: Spoke with Dr. Coty Borden discussed the case in detail with her. She recommends that the wound VAC be removed at this time. They will place a tomorrow with home health. Here in the emergency room she recommended that we take down the wound VAC, put some very very doubt but dry dressings in the wound and rapid. And then the patient can go home. Patient has home health will fix the wound VAC tomorrow. 2248: The wound VAC was removed. The wound was explode states a rather large left lower extremity wound down to the bone with tendon involvement. There is no john pus or significant infection visualized. I placed gently some gauze there they were very dad gauze not wet. And then the wound was wrapped. This was done under sterile conditions. The patient will follow up with wound care tomorrow as well as Dr. Borden. They will replace his wound VAC. IA encourage them to call the emergency room or Dr. Will office if they have any complications questions or concerns. Source: Patient - Personal History Current Tetanus/Diphtheria Vaccine: Yes Current Tetanus Diphtheria and Acellular Pertussis (TDAP): Yes Tetanus Vaccine Date: 07/25 - Medical/Surgical History Hx Asthma: No Hx Chronic Respiratory Disease: Yes Hx Diabetes: No Hx Cardiac Disease: Yes Hx Renal Disease: No Hx Cirrhosis: No Hx Alcoholism: No Hx HIV/AIDS: No Hx Splenectomy or Spleen Trauma: No Other PMH: Stents x 12. 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 is on Plavix for that. HTN. Hypercholesterolemia. hips B, Knees B replacement. back surgery - Social History Smoking Status: Former smoker Constitutional: Initial Vital Signs Temperature (C) 36.6 C 12/26/17 22:06 Heart Rate 74 12/26/17 22:06 Respiratory Rate 16 12/26/17 22:06 Blood Pressure 118/79 12/26/17 22:06 O2 Sat (%) 96 12/26/17 22:06 O2 Delivery Mode Room Air Allergies/Adverse Reactions: MUSHROOMS Allergy (Mild, Uncoded 12/26/17 22:05) Vomiting Home Medications: Medication Instructions Recorded Aspirin [Aspirin 81mg (*)] 81 mg PO HS 04/08/12 Carvedilol [Coreg (*)] 6.25 mg PO BIDMEAL 04/08/12 Clopidogrel Bisulfate [Plavix (*)] 75 mg PO DAILY 04/08/12 Levothyroxine [Synthroid 88 mcg 88 mcg PO HS 04/08/12 (*)] Ranitidine HCl [Ranitidine HCl 150 150 mg PO BID 04/08/12 mg] Atorvastatin Calcium [Lipitor 20 20 mg PO HS 08/15/15 mg (*)] Fluticasone/Vilanterol [Breo 1 each IH HS 08/15/15 Ellipta 200-25 Mcg INH] Acetaminophen [Tylenol 325mg (*)] 650 mg PO Q6 PRN 12/21/17 amLODIPine BESYLATE [Norvasc 5 mg 5 mg PO DAILY 12/21/17 (*)] Pantoprazole Sodium [Protonix 40mg 40 mg PO BID #60 tab 12/26/17 (*)] predniSONE 10 mg PO DAILY #4 tablet 12/26/17 Departure - Departure Disposition: Home, Routine, Self-Care Clinical Impression: Wound check, abscess Condition: Good Instructions: Wound Healing and Your Diet (ED) Additional Instructions: 1. You should have her wound VAC changed tomorrow by home health at her house. 2. If your run into complications please call Dr. Coty Borden or the emergency room. Referrals: NONE *PRIMARY CARE P,. [Primary Care Provider] - As per Instructions Coty Borden MD [Medical Doctor] - As per Instructions
[2017-12-26 23:03] VITALS: BP 116/64
== END 2017-12-26 23:03 | disposition home or self-care (01) ==
DX: Z48.01 Encounter for change or removal of surgical wound dressing (principal); I25.2 Old myocardial infarction; I10 Essential (primary) hypertension; Z95.5 Presence of coronary angioplasty implant and graft; Z87.891 Personal history of nicotine dependence; Z79.82 Long term (current) use of aspirin
CPT/HCPCS: G0463

== ENCOUNTER 2018-02-01 08:44 | Inpatient (IN) | payer OTHER ==
--- NOTE | 2018-02-01 08:01 | GHP ---
[f rep st] PREOP HISTORY AND PHYSICAL DATE OF ADMISSION: 02/01/2018 CHIEF COMPLAINT: Left lower extremity chronic wound. HISTORY OF PRESENT ILLNESS: The patient is an 82-year-old man with extensive cardiac history who developed a wound on his left lower extremity. This was thought to be traumatic. He was taken to the operating room December 2017 for debridement of skin, soft tissue, tendon and bone. At the time of surgery, the wound measured 14 x 11 x 1 cm with tendon and tibia exposed. He underwent wound VAC therapy. He is being treated with IV daptomycin per Infectious Disease. The wound has healthy granulation tissue in the base and is healing well with wound VAC therapy, however, continues to be quite large and he has delayed wound healing. He presents at this time for purpose of skin grafts and debridement skin and soft tissue. PAST MEDICAL HISTORY: Coronary artery disease, hypertension, hyperlipidemia, hypothyroidism, ischemic cardiomyopathy. PAST SURGICAL HISTORY: Debridement, as mentioned above. SOCIAL HISTORY: He smokes occasionally. Denies alcohol or recreational drug use. His daughter is very involved in his care. FAMILY HISTORY: Significant for heart disease. Otherwise noncontributory to wound. REVIEW OF SYSTEMS: A 10-point review of systems was negative aside from HPI. PHYSICAL EXAMINATION: GENERAL: Well-developed, well-nourished man in no acute distress. HEENT: Normocephalic, atraumatic. No hearing deficits. Pupils equal and round. No scleral icterus. Mucous membranes moist. NECK: Trachea midline. RESPIRATORY: Clear to auscultation bilaterally. No increased work of breathing. CARDIOVASCULAR: No peripheral edema. Regular rate. SKIN: Wound VAC in place as well as left lower extremity. tendon exposed. No surrounding erythema. PSYCH: Mood and affect normal. NEURO: Grossly intact. IMPRESSION AND PLAN: An 82-year-old man with delayed wound healing of a traumatic left lower extremity wound. He will be taken to the operating room for split-thickness skin graft and debridement of skin and soft tissue and likely application of Primatrix. We discussed risks of surgery, including but not limited to, heart attack, stroke, blood clots or . The risk of infection, bleeding, damage to surrounding structures, need for additional procedures, scar or continued delayed wound healing. He is on therapeutic antibiotics. He will need a wound VAC for 1 week following the procedure. He understands the risks and would like to proceed. Patient additionally seen by Dr. Coty Borden. /[id number]/MODL MTDD
[~2018-02-01 08:44] MED LIST: DAPTOmycin 480 MG in NS 100 ML IV ONE
[2018-02-01] MEDS ORDERED: LR 1,000 ML IV ONE (08:55)
--- NOTE | 2018-02-01 09:18 | PDHPUP ---
History & Physical Update H&P update statement: This history and physical update is based on an assessment of the patient which was completed after admission or registration (within 24 hours), but prior to the surgery/procedure. H&P update: H&P reviewed & patient examined, no change in patient's condition since H&P completed
--- NOTE | 2018-02-01 11:28 | PDANEPAE ---
ANE History of Present Illness non healing wound here for graft ANE Past Medical History - Cardiovascular History Hx Hypertension: Yes Hx Arrhythmias: No Hx Chest Pain: No Hx Coronary Artery / Peripheral Vascular Disease: Yes Hx CHF / Valvular Disease: Yes Hx Palpitations: No Cardiovascular History Comment: EF @ 53%. 12 stents,. ISCHEMIC CARDIOMYOPATHY - Pulmonary History Hx COPD: Yes Hx Asthma/Reactive Airway Disease: No Hx Recent Upper Respiratory Infection: No Hx Oxygen in Use at Home: Yes O2 in Use at Home (L/minute): 2L at night Hx Sleep Apnea: No Sleep Apnea Screening Result - Last Documented: Positive Pulmonary History Comment: uses inhaler - Neurologic History Hx Cerebrovascular Accident: No Hx Seizures: No Hx Dementia: No - Endocrine History Hx Diabetes: No - Renal History Hx Renal Disorders: No - Liver History Hx Hepatic Disorders: No - Neurological & Psychiatric Hx Hx Neurological and Psychiatric Disorders: No - Cancer History Hx Cancer: No - Congenital Disorder History Hx Congenital Disorders: No - GI History Hx Gastrointestinal Disorders: Yes Gastrointestinal History Comment: gasric ulcers x2,dysphagia - Other Health History Other Health History: Bulgaris. bilat hand discolored/bruised - Chronic Pain History Chronic Pain: No - Surgical History Prior Surgeries: diverticulitis 2016 ANE Review of Systems Review of Systems: - Exercise capacity METS (RN): 4 METS - Pacemaker Pacemaker Type: Permanent Pacer/Defib Pacemaker [employer]: [employer] Pacemaker Model: ITREVIA 7 DR-T Pacemaker Mode: VVI Date Pacemaker Last Checked: 12/21/17 ANE Patient History - Allergies Allergies/Adverse Reactions: MUSHROOMS Allergy (Mild, Uncoded 12/26/17 22:05) Vomiting - Home Medications Home Medications: Aspirin [Aspirin 81mg (*)] 81 mg PO DAILY 04/08/12 [Last Taken 01/31/18] Carvedilol [Coreg (*)] 6.25 mg PO BIDMEAL 04/08/12 [Last Taken 02/01/18 07:00] Clopidogrel Bisulfate [Plavix (*)] 75 mg PO DAILY 04/08/12 [Last Taken 01/29/18] Levothyroxine [Synthroid 88 mcg (*)] 88 mcg PO DAILY06 04/08/12 [Last Taken ] Ranitidine HCl [Ranitidine HCl 150 mg] 150 mg PO BID 04/08/12 [Last Taken 07:00] Fluticasone/Vilanterol [Breo Ellipta 200-25 Mcg INH] 1 each IH DAILY PRN [Last Taken 01/18/18] amLODIPine BESYLATE [Norvasc 5 mg (*)] 5 mg PO DAILY 12/21/17 [Last Taken ] Atorvastatin Calcium [Lipitor 20 mg (*)] 20 mg PO DAILY 02/01/18 [Last Taken 08/04] DAPTOmycin [Cubicin 500mg vial (*)] 480 mg IV DAILY14 02/01/18 [Last Taken 01/31 14:00] - NPO status NPO Since - Liquids (Date): 01/31/18 NPO Since - Liquids (Time): 21:00 NPO Since - Solids (Date): 01/31/18 NPO Since - Solids (Time): 21:00 - Anes Hx Anes Hx: no prior problems - Smoking Hx Smoking Status: Former smoker - Alcohol Use Alcohol Use: Rarely - Family Anes Hx Family Anes Hx: none Family Hx Anesthesia Complications: none ANE Labs/Vital Signs - Vital Signs Blood Pressure: 140/65 Heart Rate: 65 Respiratory Rate: 16 O2 Sat (%): 97 Height: 173.99 cm Weight: 74.843 kg ANE Physical Exam - Airway Neck exam: FROM Mallampati Score: Class 2 Mouth exam: normal dental/mouth exam - Pulmonary Pulmonary: no respiratory distress, clear to auscultation - Cardiovascular Cardiovascular: regular rate and rhythym, no murmur, rub, or gallop - ASA Status ASA Status: III ANE Anesthesia Plan Anesthesia Plan: GA w LMA
[2018-02-01] MEDS ORDERED: fentaNYL 100 MCG/2 ML INJ ONE ×2 (11:43→13:08)
[2018-02-01] MEDS ORDERED: LIDOCAINE 2% 100 MG/5 ML SYR ONE (11:44)
[2018-02-01] MEDS ORDERED: PROPOFOL 200 MG/20 ML VIAL ONE (11:44)
[2018-02-01] MEDS ORDERED: PHENYLEPHRINE HCL 100 MCG/ML SYR ONE ×2 (11:54→12:18)
--- NOTE | 2018-02-01 12:35 | POSTOPPROG ---
Post Op Note Date of Operation: 02/01/18 Surgeon: Coty Borden Security Solutions Architect: raul Anesthesiologist: parish Anesthesia: GET(General Endotracheal) Pre-op Diagnosis: chronic LLE wound Post-op Diagnosis: same Indication: 82yoM with chronic wound LLE Procedure: debride skin soft tissue and tendon with STSG Findings: 11x9cm, tendon and bone exposed Inf/Abcess present in the surg proc area at time of surgery?: Yes Depth: Superfical (Skin SQ) EBL: Minimal Complications: none Drains: Wound Vac Specimen(s): none
[2018-02-01] MEDS ORDERED: ONDANSETRON 4 MG/2 ML VIAL IVP PRN ×2 (12:36→12:44)
[2018-02-01] MEDS ORDERED: ONDANSETRON DISINTEGRATING 4 MG TAB PO PRN (12:36)
[2018-02-01] MEDS ORDERED: diphenhydrAMINE 25 MG CAP PO PRN (12:36)
[2018-02-01] MEDS ORDERED: ACETAMINOPHEN 325 MG TAB PO PRN (12:36)
[2018-02-01] MEDS ORDERED: HYDROCODONE/APAP 5/325 TAB PO PRN (12:36)
[2018-02-01] MEDS ORDERED: HYDROmorphONE/DILAUDID 1 MG/ML INJ IVP PRN (12:38)
[2018-02-01] MEDS ORDERED: (Fluticasone/Vilanterol [Breo Ellipta 200-25 Mcg Inh] 1 EACH) IH PRN (12:39)
[2018-02-01] MEDS ORDERED: NALOXONE HCL 0.4 MG/ML INJ IVP PRN (12:44)
[2018-02-01] MEDS ORDERED: fentaNYL 100 MCG/2 ML INJ IVP PRN (12:44)
[2018-02-01] MEDS ORDERED: ACETAMINOPHEN 500 MG TAB PO PRN (12:44)
--- NOTE | 2018-02-01 12:46 | POSTANESTH ---
Post Anesthetic Evaluation Cardiovascular Status: Normal, Stable, Similar to Pre-Op Cond Respiratory Status: Normal, Stable, Similar to Pre-op Cond. Level of Consciousness/Mental Status: Can Participate in Eval, Alert and Oriented Pain Control: Adequate, Prn Tx Ordered Nausea/Vomiting Control: Adequate, Prn Tx Ordered Complications Possibly Related to Anesthesia: None Noted
[2018-02-01] MEDS ORDERED: HYDROmorphONE/DILAUDID 1 MG/ML INJ ONE (13:08)
--- NOTE | 2018-02-01 13:27 | GOP ---
[f rep st] OPERATIVE REPORT DATE OF OPERATION: 02/01/2018 SURGEON: Coty Borden MD FINANCIAL SYSTEMS DIRECTOR: Yeimi Peters PA-C. ANESTHESIA: General. ANESTHESIOLOGIST: Conor Mcdonald M.D. PREOPERATIVE DIAGNOSIS: Chronic lower extremity wound with tendon exposed. POSTOPERATIVE DIAGNOSIS: Chronic lower extremity wound with tendon exposed. PROCEDURE PERFORMED: Debridement skin soft tissue and tendon with application of split thickness skin graft and application of PriMatrix FINDINGS: The wound measured 11 x 9 cm, tendon exposed, PriMatrix reference # [id number], lot #[id number], expiration April 2018. ESTIMATED BLOOD LOSS: Minimum. INDICATIONS: 82-year-old man with a chronic left lower extremity wound. DESCRIPTION OF PROCEDURE: Patient was brought into the operating room, placed supine on the table and general anesthesia was administered. His left lower leg was prepped and draped in the usual sterile fashion. I debrided the wound, skin, soft tissue, and tendon with a knife until there was healthy bleeding tissue. The wound measured 11 x 9 cm. I then obtained a split-thickness skin graft from his left upper thigh. Hand pie-crusting was performed. I placed PriMatrix over the area where tendon was exposed where the lateral malleolus was very close to the surface. I placed a skin graft on the remaining portions of the wound, stapled into place. Adaptic Touch and a Wound VAC were applied. Hemostasis was achieved on the donor site, wound dressed with Lizz, transfer and a dressing. He was awakened in the operating room, extubated, transferred to PACU in stable condition. /[id number]/MODL MTDD
[2018-02-01] MEDS ORDERED: DAPTOMYCIN IV SCH (14:00)
[2018-02-01] MEDS: DAPTOmycin 480 MG in NS 100 ML IV SCH (14:58)
--- NOTE | 2018-02-01 15:25 | PDHOSCONS ---
History and Physical - Chief Complaint medical mgmt - History of Present Illness We have been asked by Dr. Khan to provide medical management on this 82 yo male who is s/p LLE wound debridement with skin graft today. He has a complex medical history including a hx of PVD, CAD, HTN, HLD, and Pemphigus Vulgaris. He reports that other than the LLE wound he has been doing well. His is at present. He denies pain. He denies cp, sob, palpitations, leg swelling, focal weakness, fever, n/v. PMHx: CAD, HTN, HLD, Hypothyroidism, Gastric ulcers, PVD, Esophagitis, Dysphagia, Cardiomyopathy-ischemia PSHx: esophageal dilatation, colonic vesicular fistula repair in 2016 socHx: , smokes a pipe, no ETOH FmHx: CV disease Data/Review: last hospitalization documentation in December reviewed most recent labs reviewed, no anemia, no renal dysfunction History Information - Allergies/Home Medication List Allergies/Adverse Reactions: MUSHROOMS Allergy (Mild, Uncoded 12/26/17 22:05) Vomiting Home Medications: Aspirin [Aspirin 81mg (*)] 81 mg PO DAILY 04/08/12 [Last Taken 01/31/18] Carvedilol [Coreg (*)] 6.25 mg PO BIDMEAL 04/08/12 [Last Taken 02/01/18 07:00] Clopidogrel Bisulfate [Plavix (*)] 75 mg PO DAILY 04/08/12 [Last Taken 01/29/18] Levothyroxine [Synthroid 88 mcg (*)] 88 mcg PO DAILY06 04/08/12 [Last Taken ] Ranitidine HCl [Ranitidine HCl 150 mg] 150 mg PO BID 04/08/12 [Last Taken 07:00] Fluticasone/Vilanterol [Breo Ellipta 200-25 Mcg INH] 1 each IH DAILY PRN [Last Taken 01/18/18] amLODIPine BESYLATE [Norvasc 5 mg (*)] 5 mg PO DAILY 12/21/17 [Last Taken ] Atorvastatin Calcium [Lipitor 20 mg (*)] 20 mg PO DAILY 02/01/18 [Last Taken 08/04] DAPTOmycin [Cubicin 500mg vial (*)] 480 mg IV DAILY14 02/01/18 [Last Taken 01/31 14:00] I have personally reviewed and updated: medical history, social history - Social History Smoking Status: Former smoker Alcohol Use: Rarely Review of Systems Review of Systems: ROS: 10pt was reviewed & negative except for what was stated in HPI & below Physical Exam Physical Exam: Temp Pulse Resp BP Pulse Ox 36.8 C 63 14 129/74 H 97 02/01/18 14:52 02/01/18 14:52 02/01/18 14:52 02/01/18 14:52 02/01/18 14:52 O2 (L/minute) 2 Constitutional: no apparent distress Eyes: PERRL, EOMI Ears, Nose, Mouth, Throat: moist mucous membranes, hearing normal Cardiovascular: regular rate and rhythym, No JVD, No edema Respiratory: no respiratory distress, no rales or rhonchi, clear to auscultation Gastrointestinal: normoactive bowel sounds, soft, non-tender abdomen Skin: warm Neurologic: AAOx3 Psychiatric: interacting appropriately, not anxious, not encephalopathic, thought process linear Lymph, Heme, Immunologic: No petechiae Assessment & Plan Assessment: #LLE wound with delayed healing -s/p debridement with skin graft today -cont Daptomycin per ID #CAD, HTN, PVD, Ischemic Cardiomyopathy -overall stable -cont home meds -bp has been well controlled at home, currently well controlled -he does not take diuretics -cont Aspirin -restart Plavix on Sunday per primary #HLD-cont statin #Hx of Dysphagia, s/p Esophageal dilatation, no difficulty with swallowing currently #Hx of Gastric Ulcers and Esophagitis -cont PPI #Hx of Pemphigus Vulgaris: -He has been on Prednisone for months. He was started on Pred 20mg and tapered to 10mg. He has no symptoms. The plan was to taper off but he has not seen his Forge Shop Machine Repairer in a while. -Will cont Prednisone at current dose in the immediate post operative period. If he is stable, would decrease to 5 mg x one week and then a trial off it. The pt agrees DVT proph: per primary Thank you for this consult, we will follow along
[2018-02-01] MEDS: CARVEDILOL 6.25 MG TAB PO SCH (17:02)
--- NOTE | 2018-02-01 17:21 | SOAPPROG ---
SOAP Progress Note Assessment/Plan: Assessment: s/p STSG and Primatrix Wound vac until 02/08 (has home wound vac and this can be changed to this unit when safe for discharge) Change thigh dressing prn Restart Plavix Sunday if no issues with bleeding Plan: 02/01/18 17:19 Objective: Vital Signs Temp Pulse Resp BP Pulse Ox 36.5 C 63 14 117/60 98 02/01/18 15:52 02/01/18 15:52 02/01/18 15:52 02/01/18 15:52 02/01/18 15:52 01/31/18 02/01/18 02/02/18 05:59 05:59 05:59 Intake Total 930 Output Total 210 Balance 720 ICD10 Worksheet Patient Problems: Problems Problem Status Onset Abscess or cellulitis of foot Acute
[2018-02-01] MEDS: FAMOTIDINE 20 MG TAB PO SCH (20:54)
[2018-02-01] MEDS ORDERED: NON-FORMULARY NEW DRUG (Ranitidine Hcl [Ranitidine Hcl 150 Mg] 150 MG) PO SCH (21:00)
[2018-02-02] MEDS: LEVOTHYROXINE 88 MCG TAB PO SCH (04:28)
[2018-02-02 04:40] LABS: PLATELET COUNT 149 10^3/uL (150-400)
[2018-02-02] MEDS: predniSONE 20 MG TAB PO SCH (09:14)
[2018-02-02] MEDS: ATORVASTATIN CALCIUM 20 MG TAB PO SCH (09:14)
[2018-02-02] MEDS: FAMOTIDINE 20 MG TAB PO SCH ×2 (09:14→21:17)
[2018-02-02] MEDS: CARVEDILOL 6.25 MG TAB PO SCH ×2 (09:14→17:33)
[2018-02-02] MEDS: amLODIPine BESYLATE 5 MG TAB PO SCH (09:14)
[2018-02-02] MEDS: ASPIRIN 81 MG CHEWABLE TAB PO SCH (09:14)
--- NOTE | 2018-02-02 12:01 | SOAPPROG ---
SOAP Progress Note Assessment/Plan: Assessment: AFEBRILE/VITAL SIGNS STABLE/WOUND VAC IN PLACE/MINIMAL WOUND VAC OUTPUT WEAK PEDAL PULSES WANTS TO AMBULATE Plan: HOME SOON WITH WOUND VAC WHEN MEDICALLY STABLE 02/02/18 12:01 02/02/18 14:34 Objective: Vital Signs Temp Pulse Resp BP Pulse Ox 36.8 C 61 18 122/65 H 98 02/02/18 10:36 02/02/18 10:36 02/02/18 10:36 02/02/18 10:36 02/02/18 10:36 Laboratory Results 02/02/18 04:28 02/02/18 04:28 02/01/18 02/02/18 02/03/18 05:59 05:59 05:59 Intake Total 1570 Output Total 1135 Balance 435 ICD10 Worksheet Patient Problems: Problems Problem Status Onset Abscess or cellulitis of foot Acute
--- NOTE | 2018-02-02 12:51 | PDMN ---
Medical Necessity Medical necessity: C/M review: est. > 2 MN LOS for eval and TX of chronic left lower extremity wound with tendon exposed requiring 02/01/2018 surgery - debride skin soft tissue and tendon with split thickness skin graft from left upper thigh, wound VAC placement, postop patient at high risk of infection, patient has multiple comorbidities requiring Hospitalist consult, Wound Care consult, ongoing IV Daptomycin IV, wound VAC management, close monitoring, comorbid history of PVD, hypertension, hyperlipidemia, hypothyroidism, ischemic cardiomyopathy, dysphagia S/P esophageal dilatation, gastric ulcers and esophagitis, pemphigus Vulgaris per progress note.
--- NOTE | 2018-02-02 13:06 | PCMIDPN ---
Assessment/Plan: #MSSA LLE cellulitis + abscess s/p I & D down to bone and exposed tendon : antibiotic stop date 02/04/18 but if DC before that date, would just truncate therapy. No signs of infection on exposed areas of wound --continue daptomycin, patient denies side effects --dc dapto at discharge and remove PICC #Elevated WBC likely related recent surgery --recheck in AM meds daptomycin 450mg IV daily #40/42 days of therapy no new micro Subjective: 82 year old /White male presents for follow up of MSSA LLE cellulitis + abscess s/p I & D down to bone and exposed tendon initially on cefazolin but changed to daptomycin 01/16/18 due to decreasing plts and concern for side effect of cefazolin. Admitted for debridement of wound and tendon with STSG, findings in OR: 11x9cm, tendon and bone exposed prior to STSG. Asked about duration of antibiotics, which is through 02/04. Patient denies pain of L ankle and at skin graft site Objective: Vital Signs Temp Pulse Resp BP Pulse Ox 36.8 C 61 18 122/65 H 98 02/02/18 10:36 02/02/18 10:36 02/02/18 10:36 02/02/18 10:36 02/02/18 10:36 Laboratory Results 02/02/18 04:28 02/02/18 04:28 02/01/18 02/02/18 02/03/18 05:59 05:59 05:59 Intake Total 1570 Output Total 1135 Balance 435 Gen: nontoxic sitting in bed HEENT: o/p clear CV: RRR Chest: clear B Abdomen: Soft NT +BS LLE wound vac in place lateral ankle, mild ankle foot swelling, no erythema - Line/s RUE PICC Lines: No drainage, No erythema - Time Spent With Patient Time Spent with Patient: greater than 35 minutes (care coordinated with case management and hospitalist) Time Spent with Patient: Greater than 35 minutes spent on this patients care, greater than 50% of time spent counseling, educating, and coordinating care regarding the above mentioned plan. ICD10 Worksheet Patient Problems: Problems Problem Status Onset Abscess or cellulitis of foot Acute
[2018-02-02] MEDS: DAPTOmycin 480 MG in NS 100 ML IV SCH (14:01)
--- NOTE | 2018-02-02 14:05 | ASMTCMCOM ---
CM Note CM Note Notes: Pt admitted with LLE cellulitis & abscess s/p debridement with wound vac placement & skin graft. Pt has been on IV Daptomycin; he was originally set up with [facility], but his copay was too high so [facility]. Spoke with ID ; stop date for abx is 02/04. Per Surgery MD's progress note, pt already has home wound vac. Met with pt & his . Pt is the primary caregiver for his who has dementia. Pt reports he has a daughter, Angelique ([phone]), that has a house nearby, but has been staying with pt & his helping to take care of them. Pt reports he is current with [facility] for RN services only (feels PT/OT do not benefit him). Pt states he had a lot of issues with his previous wound vac beeping all the time & the [facility] RN had to come & deal with it often. Pt now has a new home wound vac; confirmed it is in pt's hospital room; pt requesting vac be placed the night before he discharges to make sure it is working properly. Alerted RN & MDs. Spoke with Dahiana MIKEY RN; unable to confirm pt is current with them for services; CM to follow up Sunday; referral started in [employer]. PT ordered; awaiting eval. CM will follow. Dc plan-home with [facility] Date Signed: 02/02/2018 02:04 PM Electronically Signed By:Juliana Ayala, RN
--- NOTE | 2018-02-02 15:02 | HOSPPROG ---
Hospitalist Progress Note Assessment/Plan: LLE wound with delayed healing -s/p debridement with skin graft today -cont Daptomycin per ID CAD, HTN, PVD, Ischemic Cardiomyopathy -overall stable -cont home meds -bp has been well controlled at home, currently well controlled -he does not take diuretics -cont Aspirin -restart Plavix on Sunday per primary thigh skin graft site bleeding noted last stents years ago may be reasonable to hold further plavix HLD-cont statin Hx of Dysphagia, s/p Esophageal dilatation, no difficulty with swallowing currently Hx of Gastric Ulcers and Esophagitis -cont PPI Hx of Pemphigus Vulgaris: -He has been on Prednisone for months. He was started on Pred 20mg and tapered to 10mg. He has no symptoms. The plan was to taper off but he has not seen his Linseed Cake Trimmer in a while. -Will cont Prednisone at current dose in the immediate post operative period. If he is stable, would decrease to 5 mg x one week and then a trial off it. The pt agrees Subjective: case d/w dr valentin Objective: Vital Signs Temp Pulse Resp BP Pulse Ox 36.7 C 76 18 98/59 L 94 02/02/18 14:11 02/02/18 14:11 02/02/18 14:11 02/02/18 14:11 02/02/18 14:11 Laboratory Results 02/02/18 04:28 02/02/18 04:28 02/01/18 02/02/18 02/03/18 05:59 05:59 05:59 Intake Total 1570 Output Total 1135 Balance 435 - Physical Exam Constitutional: no apparent distress, appears nourished Eyes: PERRL, anicteric sclera, EOMI Ears, Nose, Mouth, Throat: moist mucous membranes, hearing normal Cardiovascular: regular rate and rhythym, no murmur, rub, or gallop Respiratory: no respiratory distress, no rales or rhonchi Gastrointestinal: normoactive bowel sounds, soft, non-tender abdomen Genitourinary: no bladder fullness, No ghotra in urethra Skin: warm, normal color Musculoskeletal: no muscle tenderness Neurologic: AAOx3 ICD10 Worksheet Patient Problems: Problems Problem Status Onset Abscess or cellulitis of foot Acute
[2018-02-03] MEDS: LEVOTHYROXINE 88 MCG TAB PO SCH (04:31)
[2018-02-03 04:39] LABS: PLATELET COUNT 150 10^3/uL (150-400)
[2018-02-03] MEDS: amLODIPine BESYLATE 5 MG TAB PO SCH (08:26)
[2018-02-03] MEDS: FAMOTIDINE 20 MG TAB PO SCH ×2 (08:26→20:19)
[2018-02-03] MEDS: CARVEDILOL 6.25 MG TAB PO SCH ×2 (08:26→17:39)
[2018-02-03] MEDS: predniSONE 20 MG TAB PO SCH (08:26)
[2018-02-03] MEDS: ASPIRIN 81 MG CHEWABLE TAB PO SCH (08:26)
[2018-02-03] MEDS: ATORVASTATIN CALCIUM 20 MG TAB PO SCH (08:26)
[2018-02-03] MEDS: CLOPIDOGREL BISULFATE 75 MG TAB PO SCH (13:44)
[2018-02-03] MEDS: DAPTOmycin 480 MG in NS 100 ML IV SCH (13:44)
--- NOTE | 2018-02-03 14:47 | HOSPPROG ---
Hospitalist Progress Note Assessment/Plan: LLE wound with delayed healing -s/p debridement with skin graft today -cont Daptomycin per ID CAD, HTN, PVD, Ischemic Cardiomyopathy -overall stable -cont home meds -bp has been well controlled at home, currently well controlled -he does not take diuretics -cont Aspirin -restart Plavix on Sunday per primary thigh skin graft site bleeding noted last stents years ago may be reasonable to hold further plavix HLD-cont statin Hx of Dysphagia, s/p Esophageal dilatation, no difficulty with swallowing currently Hx of Gastric Ulcers and Esophagitis -cont PPI Hx of Pemphigus Vulgaris: -He has been on Prednisone for months. He was started on Pred 20mg and tapered to 10mg. He has no symptoms. The plan was to taper off but he has not seen his Sub Plant Manager in a while. -Will cont Prednisone at current dose in the immediate post operative period. If he is stable, would decrease to 5 mg x one week and then a trial off it. The pt agrees Subjective: decreased bleeding at skin graft site Objective: Vital Signs Temp Pulse Resp BP Pulse Ox 36.4 C 63 20 126/62 H 99 02/03/18 10:00 02/03/18 10:00 02/03/18 10:00 02/03/18 10:00 02/03/18 10:00 Laboratory Results 02/03/18 04:30 02/02/18 04:28 02/02/18 02/03/18 02/04/18 05:59 05:59 05:59 Intake Total 1570 200 Output Total 1135 1000 850 Balance 435 -261 -438 - Physical Exam Constitutional: no apparent distress, appears nourished Eyes: PERRL, anicteric sclera Ears, Nose, Mouth, Throat: moist mucous membranes, ears appear normal Cardiovascular: regular rate and rhythym, no murmur, rub, or gallop Respiratory: no respiratory distress, no rales or rhonchi Gastrointestinal: normoactive bowel sounds, soft, non-tender abdomen Genitourinary: No ghotra in urethra Skin: warm, normal color, other (decreased bleeding at skin graft site) Musculoskeletal: full muscle strength, no muscle tenderness Neurologic: AAOx3, sensation intact bilaterally Psychiatric: interacting appropriately Lymph, Heme, Immunologic: no cervical LAD ICD10 Worksheet Patient Problems: Problems Problem Status Onset Abscess or cellulitis of foot Acute
--- NOTE | 2018-02-03 20:49 | SOAPPROG ---
SOAP Progress Note Assessment/Plan: Assessment: AFEBRILE/VITAL SIGNS STABLE/WOUND VAC IN PLACE/MINIMAL WOUND VAC OUTPUT WEAK PEDAL PULSES WANTS TO AMBULATE Plan: HOME SOON WITH WOUND VAC WHEN MEDICALLY STABLE 02/02/18 12:01 02/02/18 14:34 02/03/18 20:48 NO REAL CHANGE/WOUND VAC IN PLACE/AFEBRILE/PULSES POOR/ WILL CHECK ARCH STUDIES IN THE A.M. Objective: Vital Signs Temp Pulse Resp BP Pulse Ox 36.4 C 61 16 126/62 H 96 02/03/18 16:48 02/03/18 16:48 02/03/18 16:48 02/03/18 16:48 02/03/18 16:48 Laboratory Results 02/03/18 04:30 02/02/18 04:28 02/02/18 02/03/18 02/04/18 05:59 05:59 05:59 Intake Total 1570 200 Output Total 1135 1000 850 Balance 641 -114 -413 ICD10 Worksheet Patient Problems: Problems Problem Status Onset Abscess or cellulitis of foot Acute
[2018-02-04] MEDS: LEVOTHYROXINE 88 MCG TAB PO SCH (04:54)
[2018-02-04 07:11] VITALS: BP 127/77
[2018-02-04] MEDS: ASPIRIN 81 MG CHEWABLE TAB PO SCH (08:02)
[2018-02-04] MEDS: ATORVASTATIN CALCIUM 20 MG TAB PO SCH (08:02)
[2018-02-04] MEDS: CARVEDILOL 6.25 MG TAB PO SCH (08:02)
[2018-02-04] MEDS: FAMOTIDINE 20 MG TAB PO SCH (08:02)
[2018-02-04] MEDS: predniSONE 20 MG TAB PO SCH (08:03)
[2018-02-04] MEDS: amLODIPine BESYLATE 5 MG TAB PO SCH (08:03)
--- NOTE | 2018-02-04 10:27 | SOAPPROG ---
SOAP Progress Note Assessment/Plan: Assessment/Plan: 82yo M POD#3 s/p STSG and Primatrix Wound vac until 02/08 Change thigh dressing prn Plavix restarted Last dose IV antibiotics today DC later this afternoon after last dose of antibiotics. Switch over to home vac this morning to make sure no issues before DC. Home care for dressing change/ vac check. Will fu Sunday for vac removal at our office. S: doing well. No pain. ambulating without difficulty O: sitting in chair, comfortable, no acute distress No increased work of breathing Left thigh donor site with serosanguineous drainage. No john blood Left lower extremity graft site with wound VAC intact to suction. No surrounding erythema, no evidence of active infection Objective: Vital Signs Temp Pulse Resp BP Pulse Ox 36.7 C 63 16 127/77 H 95 02/04/18 07:09 02/04/18 07:09 02/04/18 07:09 02/04/18 07:09 02/04/18 07:09 Laboratory Results 02/03/18 04:30 02/02/18 04:28 02/03/18 02/04/18 02/05/18 05:59 05:59 05:59 Intake Total 200 Output Total 1000 1325 Balance -800 -1325 ICD10 Worksheet Patient Problems: Problems Problem Status Onset Abscess or cellulitis of foot Acute
[2018-02-04] MEDS: CLOPIDOGREL BISULFATE 75 MG TAB PO SCH (11:27)
--- NOTE | 2018-02-04 13:27 | PDIAF ---
- Diagnosis Diagnosis: LLE chronic wound Code Status: Full Code - Medication Management Discharge Medications: Medications to Continue on Transfer Aspirin [Aspirin 81mg (*)] 81 mg PO DAILY 04/08/12 [Last Taken 01/31/18] Carvedilol [Coreg (*)] 6.25 mg PO BIDMEAL 04/08/12 [Last Taken 02/01/18 07:00] Clopidogrel Bisulfate [Plavix (*)] 75 mg PO DAILY 04/08/12 [Last Taken 01/29/18] Levothyroxine [Synthroid 88 mcg (*)] 88 mcg PO DAILY06 04/08/12 [Last Taken ] Ranitidine HCl [Ranitidine HCl 150 mg] 150 mg PO BID 04/08/12 [Last Taken 07:00] Fluticasone/Vilanterol [Breo Ellipta 200-25 Mcg INH] 1 each IH DAILY PRN [Last Taken 01/18/18] amLODIPine BESYLATE [Norvasc 5 mg (*)] 5 mg PO DAILY 12/21/17 [Last Taken ] predniSONE 10 mg PO DAILY #4 tablet 12/26/17 [Last Taken 02/01/18 07:00] Atorvastatin Calcium [Lipitor 20 mg (*)] 20 mg PO DAILY 02/01/18 [Last Taken 08/04] DAPTOmycin [Cubicin 500mg vial (*)] 480 mg IV DAILY14 02/01/18 [Last Taken 01/31 14:00] Discharge Medications: Refer to the Discharge Home Medication list for PRN reason. - Orders Services needed: Home Care, Registered Nurse Home Care Face to Face: I certify that this patient was under my care and that I had the required [id number] encounter meeting the encounter requirements on the discharge day. My findings support the fact that the patient is homebound as defined in Home Care Face to Face Continued: CMS Chapter 7 Medicare Benefits Manual 30.1.1 , The condition of the patient is such that there exists a normal inability to leave home and consequently, leaving home would require a considerable and taxing effort. Diet Recommendation: no restrictions on diet Diet Texture: Regular Texture Diet Wound Care Instructions: L thigh dressing change daily - mepilex transfer and tegaderm. Wound vac to suction continuously. Additional Instructions: No more antibiotics. Wound vac to suction continuously until appt with Dr. Borden on Sunday02/08/18. We will remove the wound vac at that time. Home care to change L thigh donor site dressing daily - mepilex transfer and tegaderm. If the wound vac loses suction for >2 hours, please call home care and our office for instructions. You or the home care nurse would need to remove the dressing completely and apply a nonstick dressing. You wound need to follow-up in our office the next morning . - Follow Up Care Current Providers and Referrals: David Duarte MD [Primary Care Provider] - Coty Borden MD [Medical Doctor] -
[2018-02-04] MEDS: DAPTOmycin 480 MG in NS 100 ML IV SCH (14:00)
--- NOTE | 2018-02-04 16:10 | ASMTLACE ---
LACE Length of stay for Answers: 3 days current admission Acuity / Level of Answers: Yes Care: Did the patient have an inpatient admission? Comorbidities - select Answers: Coronary Artery Disease all that apply Other Notes: HTN, hyperlipidemia, hy pot hyroid, ischemic cardiomyopathy # of Emergency department Answers: 3-4 visits in the last 6 months Score: 12 Date Signed: 02/04/2018 04:09 PM Electronically Signed By:ANJUM Perez
--- NOTE | 2018-02-05 09:40 | ASDISCHSUM ---
Discharge Information Plan Status:Home with Home Health Medically Cleared to Leave:02/04/2018 Discharge Date:02/04/2018 03:35 PM CM D/C Disposition: ADT D/C Disposition:Home Health Service Projected Discharge Date:02/04/2018 11:00 AM Transportation at D/C: Discharge Delay Reason: Follow-Up Date:02/04/2018 11:00 AM Discharge Slot: Final Diagnosis: Placement Information Referral Type:*Home Health Care Services Referral ID:[id number] Provider Name:[facility] Care Address 1:[address] Address 2: City:[place] Selection Factors: State:[place] Patient Contact Information Contact Name:ARABELLA Relationship:Daughter Address:[address] Work Phone: [facility]:[place] Alternate Phone: State/Zip Code:[place] [address] Email: Financial Information Financial Class:Medicare Primary Plan Desc:MEDICARE INPATIENT Primary Plan Number:[id number] Secondary Plan Desc:KELLEN Secondary Plan Number:[id number] Assessment Information LACE LACE Length of stay for Answers: 3 days current admission Acuity / Level of Answers: Yes Care: Did the patient have an inpatient admission? Comorbidities - select Answers: Coronary Artery Disease all that apply Other Notes: HTN, hyperlipidemia, hy pot hyroid, ischemic cardiomyopathy # of Emergency department Answers: 3-4 visits in the last 6 months Score: 12 Date Signed: 02/04/2018 04:09 PM Electronically Signed By:ANJUM Perez [facility] CM Progress Note CM Note CM Note Notes: Pt admitted with LLE cellulitis & abscess s/p debridement with wound vac placement & skin graft. Pt has been on IV Daptomycin; he was originally set up with [facility], but his copay was too high so [facility]. Spoke with ID ; stop date for abx is 02/04. Per Surgery MD's progress note, pt already has home wound vac. Met with pt & his . Pt is the primary caregiver for his who has dementia. Pt reports he has a daughter, Angelique ([phone]), that has a house nearby, but has been staying with pt & his helping to take care of them. Pt reports he is current with [facility] for RN services only (feels PT/OT do not benefit him). Pt states he had a lot of issues with his previous wound vac beeping all the time & the [facility] RN had to come & deal with it often. Pt now has a new home wound vac; confirmed it is in pt's hospital room; pt requesting vac be placed the night before he discharges to make sure it is working properly. Alerted RN & MDs. Spoke with Dahiana [facility] RN; unable to confirm pt is current with them for services; CM to follow up Sunday; referral started in [employer]. PT ordered; awaiting eval. CM will follow. Dc plan-home with [facility] Date Signed: 02/02/2018 02:04 PM Electronically Signed By:Juliana Ayala RN Case Management Discharge Plan Note Case Management Discharge Discharge Order Complete? Answers: Yes Patient to Obtain Answers: via Family Medications Transportation Arranged Answers: Family/Friends EMTALA Complete Answers: No Case Management Transport Answers: No Form Complete Discharge Comments Notes: CM spoke w/ DARSHAN Roper regarding d/c POC. Pt is being discharged today. Pt will have DARSHAN Watson re-attach his own wound vac that he brought from home. AROLDO notified MIKEY of the d/c. AROLDO provided DARSHAN Roper w/ phone number to give report. CM available for changes. Plan: DARSHAN CHUNG Date Signed: 02/04/2018 04:09 PM Electronically Signed By:ANJUM Perez Intervention Information Intervention Type:*IM-Signed Date of Service:02/04/2018 03:05 PM Patient Type:Inpatient Staff Member:Melani Clements Hours: Discipline: Severity: Comment:
== END 2018-02-04 15:35 | disposition home health service (06) | DRG 577 ==
LOC: F3E 08:44 → OBSVTOIN 08:44 → F3E 13:49
PROVIDERS: ADMIT Surgery; ATTEND Surgery
PROC: 0HBJXZZ Excision of Left Upper Leg Skin, External Approach (ICD-10-PCS; principal; 2018-02-01 10:15)
PROC: 0HRLX74 Replacement of Left Lower Leg Skin with Autologous Tissue Substitute, Partial Thickness, External Approach (ICD-10-PCS; principal; 2018-02-01 10:15)
DX: S91.002A Unspecified open wound, left ankle, initial encounter (principal); T79.8XXA Other early complications of trauma, initial encounter; I73.9 Peripheral vascular disease, unspecified; I25.10 Atherosclerotic heart disease of native coronary artery without angina pectoris; L10.0 Pemphigus vulgaris; I10 Essential (primary) hypertension; E78.5 Hyperlipidemia, unspecified; E03.9 Hypothyroidism, unspecified; Z87.891 Personal history of nicotine dependence; Z87.11 Personal history of peptic ulcer disease; Z79.52 Long term (current) use of systemic steroids
CPT/HCPCS: 97116-GP; 97162-GP; 97165-GO; 97530-GP; G8978-GP-CK; G8979-GP-CJ; G8987-GO-CJ; G8988-GO-CI; J0171; J0878; J1170; J2001; J2370; J2704; J3010; J7512; Q4110

== ENCOUNTER 2018-03-15 10:52 | Observation (INO) | payer OTHER ==
[2018-03-15] MEDS ORDERED: ceFAZolin 2 GM/DEXTROSE 100 ML IV ONE (11:05)
[2018-03-15] MEDS ORDERED: LR 1,000 ML IV ONE (11:05)
[2018-03-15] MEDS ORDERED: BUPIVACAINE 0.25% 30 ML SDV ONE (12:32)
--- NOTE | 2018-03-15 13:06 | PDANEPAE ---
ANE Past Medical History - Cardiovascular History Hx Hypertension: Yes Hx Arrhythmias: No Hx Chest Pain: Yes Hx Coronary Artery / Peripheral Vascular Disease: Yes Hx CHF / Valvular Disease: No Hx Palpitations: No Cardiovascular History Comment: PT HAS ICD. 12 stents,. ISCHEMIC CARDIOMYOPATHY - Pulmonary History Hx COPD: Yes Hx Asthma/Reactive Airway Disease: No Hx Recent Upper Respiratory Infection: No Hx Oxygen in Use at Home: Yes O2 in Use at Home (L/minute): CPAP W/O2 NOC. Hx Sleep Apnea: No Sleep Apnea Screening Result - Last Documented: Positive Pulmonary History Comment: INHALER - Neurologic History Hx Cerebrovascular Accident: No Hx Seizures: No Hx Dementia: No - Endocrine History Hx Diabetes: No - Renal History Hx Renal Disorders: No - Liver History Hx Hepatic Disorders: No - Neurological & Psychiatric Hx Hx Neurological and Psychiatric Disorders: No - Cancer History Hx Cancer: No - Congenital Disorder History Hx Congenital Disorders: No - GI History Hx Gastrointestinal Disorders: Yes Gastrointestinal History Comment: gasric ulcers x2,dysphagia - Other Health History Other Health History: Bulgaris. bilat hand discolored/bruised - Chronic Pain History Chronic Pain: No - Surgical History Prior Surgeries: diverticulitis 2016. ANKLE L SURG X2 DECEMBER/JANUARY. BOWEL RESECTION. HIP SURG. TKA ANE Review of Systems Review of Systems: - Exercise capacity METS (RN): 3 METS - Pacemaker Pacemaker [employer] Legal Intern: [employer] Date Pacemaker Last Checked: BHUMI PENA CALLED BACK TO CONFIRM THEY WILL BE HERE BY 1300 ANE Patient History - Allergies Allergies/Adverse Reactions: MUSHROOMS Allergy (Mild, Uncoded 12/26/17 22:05) Vomiting - Home Medications Home medications: home medication list seen and reviewed Home Medications: Aspirin [Aspirin 81mg (*)] 81 mg PO DAILY 04/08/12 [Last Taken 03/15/18 06:00] Carvedilol [Coreg (*)] 6.25 mg PO BIDMEAL 04/08/12 [Last Taken 03/15/18 06:00] Clopidogrel Bisulfate [Plavix (*)] 75 mg PO DAILY 04/08/12 [Last Taken 03/10/18] Levothyroxine [Synthroid 88 mcg (*)] 88 mcg PO DAILY06 04/08/12 [Last Taken 06:00] Ranitidine HCl [Ranitidine HCl 150 mg] 150 mg PO BID 04/08/12 [Last Taken ] Fluticasone/Vilanterol [Breo Ellipta 200-25 Mcg INH] 1 each IH DAILY PRN [Last Taken 03/12/18] amLODIPine BESYLATE [Norvasc 5 mg (*)] 5 mg PO DAILY 12/21/17 [Last Taken ] Atorvastatin Calcium [Lipitor 20 mg (*)] 20 mg PO HS 02/01/18 [Last Taken ] Diclofenac Sodium [Voltaren 75 MG (*)] 75 mg PO DAILY 03/12/18 [Last Taken 03/14] Losartan/Hydrochlorothiazide [Losartan-Hctz 100-25 mg Tab] 0.5 each PO BID 03/12 [Last Taken 03/14/18] predniSONE 5 mg PO DAILY 03/12/18 [Last Taken 03/15/18 06:00] - NPO status NPO Status: no food or drink >8 hours NPO Since - Liquids (Date): 03/15/18 NPO Since - Liquids (Time): 05:00 NPO Since - Solids (Date): 03/07/18 NPO Since - Solids (Time): 20:00 - Anes Hx Anes Hx: no prior problems - Smoking Hx Smoking Status: Former smoker - Family Anes Hx Family Hx Anesthesia Complications: none ANE Labs/Vital Signs - Labs Result Diagrams: 03/15/18 11:55 - Vital Signs Blood Pressure: 96/64 Heart Rate: 66 Respiratory Rate: 14 O2 Sat (%): 95 Height: 175.26 cm Weight: 72.575 kg ANE Physical Exam - Airway Neck exam: decreased ROM Mallampati Score: Class 2 Mouth exam: normal dental/mouth exam - Pulmonary Pulmonary: no respiratory distress, no rales or rhonchi, clear to auscultation - Cardiovascular Cardiovascular: regular rate and rhythym, no murmur, rub, or gallop - ASA Status ASA Status: III ANE Anesthesia Plan Anesthesia Plan: MAC
--- NOTE | 2018-03-15 13:29 | PDHPUP ---
History & Physical Update H&P update statement: This history and physical update is based on an assessment of the patient which was completed after admission or registration (within 24 hours), but prior to the surgery/procedure. H&P update: changes noted (leg more painful and erythematous will examine. Wants cyst on ear removed)
[2018-03-15] MEDS ORDERED: PROPOFOL 200 MG/20 ML VIAL ONE ×2 (13:41→14:25)
[2018-03-15] MEDS ORDERED: fentaNYL 100 MCG/2 ML INJ ONE ×2 (13:41→15:51)
[2018-03-15] MEDS ORDERED: PHENYLEPHRINE HCL 100 MCG/ML SYR ONE (14:03)
[2018-03-15] MEDS ORDERED: PROMETHAZINE HCL 25 MG/ML INJ IVP PRN (14:29)
[2018-03-15] MEDS ORDERED: ACETAMINOPHEN 500 MG TAB PO PRN (14:29)
[2018-03-15] MEDS ORDERED: oxyCODONE IR 5 MG TAB PO PRN (14:29)
[2018-03-15] MEDS ORDERED: NALOXONE HCL 0.4 MG/ML INJ IVP PRN (14:29)
[2018-03-15] MEDS ORDERED: fentaNYL 100 MCG/2 ML INJ IVP PRN (14:29)
[2018-03-15] MEDS ORDERED: ONDANSETRON 4 MG/2 ML VIAL IVP PRN (14:29)
[2018-03-15] MEDS ORDERED: Fluticasone/Vilanterol [Breo Ellipta 200-25 Mcg Inh] IH PRN (15:06)
--- NOTE | 2018-03-15 15:06 | POSTOPPROG ---
Post Op Note Date of Operation: 03/15/18 Surgeon: Coty Borden Anesthesiologist: jose Anesthesia: IV Sedation Pre-op Diagnosis: ear mass, RIH, wound Post-op Diagnosis: same Indication: 82 yo with RIH wound and r ear mass Procedure: R open IH w mesh, excision mass 2 cm, debride wound and wound vac Inf/Abcess present in the surg proc area at time of surgery?: Yes Depth: Superfical (Skin SQ) EBL: Minimal Specimen(s): ear mass
--- NOTE | 2018-03-15 15:18 | POSTANESTH ---
Post Anesthetic Evaluation Cardiovascular Status: Normal, Stable, Similar to Pre-Op Cond Respiratory Status: Normal, Stable, Similar to Pre-op Cond. Level of Consciousness/Mental Status: Can Participate in Eval, Mildly Sleepy, Arousable Pain Control: Adequate, Prn Tx Ordered Nausea/Vomiting Control: Adequate, Prn Tx Ordered Complications Possibly Related to Anesthesia: None Noted
--- NOTE | 2018-03-15 17:05 | ASMTCMCOM ---
CM Note CM Note Notes: Pt in for planned hernia repair, lives at home with his . He is current with [facility] home care (RN), AROLDO w/f. Date Signed: 03/15/2018 05:05 PM Electronically Signed By:Estelle Clements RN
[2018-03-15] MEDS ORDERED: CARVEDILOL 6.25 MG TAB PO SCH (18:00)
--- NOTE | 2018-03-15 18:31 | CPEKG ---
Heart Rate: 81 RR Interval: 741 P-R Interval: 216 QRSD Interval: 118 QT Interval: 376 QTC Interval: 437 P [place]: 28 QRS [place]: -48 T Wave [place]: 41 EKG Severity - ABNORMAL ECG - EKG Impression: SINUS RHYTHM EKG Impression: NONSPECIFIC IVCD WITH LAD EKG Impression: PROBABLE INFERIOR INFARCT, AGE INDETERMINATE Electronically Signed By: Josh Meyers 16-Mar-2018 10:42:00
--- NOTE | 2018-03-15 19:32 | GCON ---
[f rep st] CONSULTATION DATE OF CONSULTATION: 03/15/2018 REFERRING PHYSICIAN: Coty Borden MD REASON FOR CONSULTATION: Bradycardia, medical conditions. HISTORY OF PRESENT ILLNESS: An 82-year-old male with extensive cardiac history including coronary artery disease, status post 12 stents, ischemic cardiomyopathy full foot, AICD, peripheral vascular disease, who underwent elective right open inguinal hernia repair, and mass excision of the right ear by Dr. Borden today. When he was transferred to the floor, nursing noticed his heart rates dropped to 39. This quickly returned to normal. He was asymptomatic. At home, he denies chest pain. He gets short of breath with extensive activity. He gets dizzy if he gets out of bed too quickly. REVIEW OF SYSTEMS: I completed a 10-point review of systems, negative except as noted in the HPI. PAST MEDICAL HISTORY: Coronary artery disease, status post 12 stents, ischemic cardiomyopathy with AICD, chronic left lower extremity wound with wound VAC, FLEX on CPAP, peripheral vascular disease, hypertension, chronic angina, hypothyroid, and hyperlipidemia, history of dysphagia, status post esophageal dilatation, history of gastric ulcers and esophagitis, history of pemphigus vulgaris, COPD with oxygen, chronic hypoxemic respiratory failure. PAST SURGICAL HISTORY: Colovesicular fistula, knees, hip, and back. SOCIAL HISTORY: Lives in [place]. Has been 65 years. No illicit' s. Used to smoke a pipe, quit 4 months ago. Uses a scooter. FAMILY HISTORY: Noncontributory. HOME MEDICATIONS: Prednisone 5 mg daily, Norvasc 5 mg daily, ranitidine 150 mg b.i.d., losartan/hydrochlorothiazide half a tab twice b.i.d., Synthroid 88 mcg daily, Breo inhaled p.r.n., Voltaren 75 mg daily, Plavix 75 daily, Coreg 6.25 mg b.i.d., atorvastatin 20 mg q.h.s., aspirin. ALLERGIES: Mushrooms. PHYSICAL EXAMINATION: VITAL SIGNS: Temperature 36.6, blood pressure 129/94, heart rate reported by nursing was 39, now 81. Respirations 21, 97% on 1.5 L. GENERAL: He is a chronically ill-appearing male in no acute distress. He is wrapped up in his blankets. HEENT: PERRLA. Moist mucous membranes. Sutures on right earlobe. CV: Distant heart sounds but regular. +3 pitting edema up to left knee. LUNGS: Clear anteriorly. ABDOMEN: Soft, nontender, nondistended. : Right inguinal incision clean, dry, and intact. MUSCULOSKELETAL: He is moving all 4 extremities. SKIN: He has a graft site on his left thigh that is dressed. NEURO: No focal deficits. PSYCH: Alert and oriented x3. LABS: Sodium 141, potassium 3.9, chloride 102, carbon dioxide 31, BUN 32, creatinine is 1.0, up from 0.7. Glucose is 77, calcium is 8.8. EKG personally reviewed by me, normal sinus rhythm, nonspecific, IVCD. ASSESSMENT AND PLAN: 1. Bradycardia. This resolved spontaneously. Patient was asymptomatic. Suspect from IV sedation. We will monitor on telemetry. Hold Coreg tonight. Resume in the morning. Has significant CAD.Lexiscan test in September 2017, showed large-sized fixed, but partially reversible apical lateral/inferolateral defect consistent with almaz-infarct ischemia. Continue aggressive medical management. 3. Right inguinal hernia: s/p open repair with mesh by Dr. Borden. 4. Right ear mass: Excised. 5. Ischemic cardiomyopathy. Resume home medications. 6. Peripheral vascular disease: ASA, statin, beta-rosalva. Right leg stent for limb salvage in 2010. 7. Hypothyroidism. Synthroid. 8. Hyperlipidemia. Statin. 9. Left lower leg wound: followed closely by Dr. Borden, has a wound VAC in place this evening. 10. Obstructive sleep apnea, on CPAP. 11. Hypertension. Home medications. 12. Chronic obstructive pulmonary disease. No evidence of exacerbation. 13. Chronic hypoxemic respiratory failure. Continue oxygen at night. 14. History of gastric ulcers. Continue proton pump inhibitor. 15. Diet: Regular. Thank you for this consultation. We will follow along. Please call if any questions. /[id number]/MODL MTDD
[2018-03-15] MEDS: LOSARTAN/HCTZ 50/12.5 1 TAB PO SCH (20:33)
[2018-03-15] MEDS: FAMOTIDINE 20 MG TAB PO SCH (20:33)
[2018-03-15] MEDS ORDERED: ATORVASTATIN CALCIUM 20 MG TAB PO SCH (21:00)
[2018-03-16] MEDS: HYDROCODONE/APAP 5/325 TAB PO PRN ×2 (05:35→08:37)
[2018-03-16] MEDS ORDERED: LEVOTHYROXINE 88 MCG TAB PO SCH (06:00)
[2018-03-16] MEDS ORDERED: CARVEDILOL 6.25 MG TAB PO SCH (08:00)
[2018-03-16] MEDS: LOSARTAN/HCTZ 50/12.5 1 TAB PO SCH (08:33)
[2018-03-16] MEDS: FAMOTIDINE 20 MG TAB PO SCH (08:34)
[2018-03-16] MEDS ORDERED: ASPIRIN 81 MG CHEWABLE TAB PO SCH (09:00)
[2018-03-16] MEDS ORDERED: DICLOFENAC SODIUM 75 MG TAB PO SCH (09:00)
[2018-03-16] MEDS ORDERED: CLOPIDOGREL BISULFATE 75 MG TAB PO SCH (09:00)
[2018-03-16] MEDS ORDERED: predniSONE 5 MG TAB PO SCH (09:00)
[2018-03-16] MEDS ORDERED: amLODIPine BESYLATE 5 MG TAB PO SCH (09:00)
[2018-03-16 11:45] VITALS: BP 85/56
--- NOTE | 2018-03-16 15:28 | PDIAF ---
- Diagnosis Diagnosis: hernia Code Status: Full Code - Medication Management Discharge Medications: Medications to Continue on Transfer Aspirin [Aspirin 81mg (*)] 81 mg PO DAILY 04/08/12 [Last Taken 03/15/18 06:00] Carvedilol [Coreg (*)] 6.25 mg PO BIDMEAL 04/08/12 [Last Taken 03/15/18 06:00] Clopidogrel Bisulfate [Plavix (*)] 75 mg PO DAILY 04/08/12 [Last Taken 03/10/18] Levothyroxine [Synthroid 88 mcg (*)] 88 mcg PO DAILY06 04/08/12 [Last Taken 06:00] Ranitidine HCl [Ranitidine HCl 150 mg] 150 mg PO BID 04/08/12 [Last Taken ] Fluticasone/Vilanterol [Breo Ellipta 200-25 Mcg INH] 1 each IH DAILY PRN [Last Taken 03/12/18] amLODIPine BESYLATE [Norvasc 5 mg (*)] 5 mg PO DAILY 12/21/17 [Last Taken ] Atorvastatin Calcium [Lipitor 20 mg (*)] 20 mg PO HS 02/01/18 [Last Taken ] Diclofenac Sodium [Voltaren 75 MG (*)] 75 mg PO DAILY 03/12/18 [Last Taken 03/14] Losartan/Hydrochlorothiazide [Losartan-Hctz 100-25 mg Tab] 0.5 each PO BID 03/12 [Last Taken 03/14/18] predniSONE 5 mg PO DAILY 03/12/18 [Last Taken 03/15/18 06:00] Hydrocodone/APAP 5/325 [[place] 5/325 (*)] 1 tab PO Q4HRS PRN #10 tab 03/16/18 [ Last Taken Unknown] Discharge Medications: Refer to the Discharge Home Medication list for PRN reason. - Orders Services needed: Home Care, Registered Nurse, Physical Therapy, Occupational Therapy Home Care Face to Face: I certify that this patient was under my care and that I had the required [id number] encounter meeting the encounter requirements on the discharge day. My findings support the fact that the patient is homebound as defined in Home Care Face to Face Continued: CMS Chapter 7 Medicare Benefits Manual 30.1.1 , The condition of the patient is such that there exists a normal inability to leave home and consequently, leaving home would require a considerable and taxing effort. Additional Instructions: Resume home health care Hydrofera blue and absorptive dressing (optilock or other) 3x week and prn. I will see later this week for another application of primatrix (bovine collagen) - Follow Up Care Current Providers and Referrals: Coty Borden MD [Medical Doctor] - follow up in 1 week David Duarte MD [Primary Care Provider] -
--- NOTE | 2018-03-16 15:37 | GOP ---
[f rep st] OPERATIVE REPORT DATE OF OPERATION: 03/15/2018 SURGEON: Coty Borden MD ANESTHESIA: Monitored anesthesia care with IV sedation. ANESTHESIOLOGIST: Bertin Newman MD. PREOPERATIVE DIAGNOSIS: 1. Right inguinal hernia. 2. Right ear mass. 3. Left lower extremity wound. POSTOPERATIVE DIAGNOSIS: 1. Right inguinal hernia. 2. Right ear mass. 3. Left lower extremity wound. PROCEDURE PERFORMED: 1. Open right inguinal hernia repair with mesh. 2. Excision of ear mass 2 cm. 3. Non-selective debridement left lower extremity wound and application of AmnioFil 500 mg with Wound VAC. 4. Excision of necrotic tendon. FINDINGS: 1. Indirect inguinal hernia. 2. Cystic mass from the ear. 3. More tendon is covered and there was more granulation tissue over the wound. There was some necrotic tendon, which I excised. SPECIMENS: Ear mass. INDICATIONS: The patient is an 82-year-old man whom I have been treating for a severe left lower extremity wound. He has undergone split-thickness skin graft and Prime Matrix placement. We have been applying Prime Matrix and Integra bilayer in the office. He noted a right inguinal hernia that is becoming increasingly symptomatic. He also complained of an ear mass. DESCRIPTION OF PROCEDURE: Patient was brought into the operating room, placed supine on the table and monitored anesthesia care with IV sedation was administered. His groin and scrotum were prepped and draped in the usual sterile fashion. I performed an ilioinguinal nerve block as well as local anesthetic in the area where I would make the incision and created an incision from pubis in a natural skin crease, directed toward the anterior superior iliac spine. I deepened my dissection down through the subcutaneous tissues. I divided a superficial vein. I continued my dissection. I immediately encountered the hernia. I was able to encircle the cord and cord structures in the hernia. I then the cord and cord structures from the hernia. I suture ligated the hernia sac and return this to the abdominal cavity. I then could identify the aponeurosis of the external oblique, which I divided. I preserved the ilioinguinal nerve. I created superior and inferior skin flaps. I then cut a piece of Progrip mesh to size. I sutured it to the pubic tubercle to the conjoined tendon into the inferior edge of the inguinal ligament. I then created a slit in the mesh to accommodate the cord and cord structures and then reapproximated them enough to accommodate my 5th digit. I closed the aponeurosis of the external oblique with 2-0 Vicryl. I closed Ruben with 3-0 Vicryl. I closed the skin with 3-0 Vicryl followed by 4-0 Monocryl and Dermabond applied. Next, I prepped his ear with Betadine and draped it. I created an incision and the cystic 2 cm lesion was easily excised. I closed the area with 4-0 Prolene. Finally, I removed the dressings on his left lower extremity. I cut away some necrotic tendon. I non-selectively debrided the subcutaneous tissue. There was more coverage over the tendon than previously. I placed AmnioFil followed by a Wound VAC. He was awakened in the operating room and transferred to PACU in stable condition. /[id number]/MODL MTDD
--- NOTE | 2018-03-16 15:44 | SOAPPROG ---
SOAP Progress Note Assessment/Plan: Assessment: HERNIA SITE OK LEG SITE WITH POOR GRANULATION AND POCKETS OF NECROSIS/ WOUND REDRESSED Plan:HOME WITH HOME CARE 03/16/18 15:40 Objective: Vital Signs Temp Pulse Resp BP Pulse Ox 36.8 C 72 16 85/56 L 93 03/16/18 11:40 03/16/18 11:57 03/16/18 11:40 03/16/18 11:40 03/16/18 11:57 Laboratory Results 03/15/18 11:55 03/15/18 03/16/18 03/17/18 05:59 05:59 05:59 Intake Total 1800 Output Total 510 Balance 1290 ICD10 Worksheet Patient Problems: Problems Problem Status Onset Abscess or cellulitis of foot Acute
--- NOTE | 2018-03-16 15:45 | PDIAF ---
- Diagnosis Diagnosis: hernia Code Status: Full Code - Medication Management Discharge Medications: Medications to Continue on Transfer Aspirin [Aspirin 81mg (*)] 81 mg PO DAILY 04/08/12 [Last Taken 03/15/18 06:00] Carvedilol [Coreg (*)] 6.25 mg PO BIDMEAL 04/08/12 [Last Taken 03/15/18 06:00] Clopidogrel Bisulfate [Plavix (*)] 75 mg PO DAILY 04/08/12 [Last Taken 03/10/18] Levothyroxine [Synthroid 88 mcg (*)] 88 mcg PO DAILY06 04/08/12 [Last Taken 06:00] Ranitidine HCl [Ranitidine HCl 150 mg] 150 mg PO BID 04/08/12 [Last Taken ] Fluticasone/Vilanterol [Breo Ellipta 200-25 Mcg INH] 1 each IH DAILY PRN [Last Taken 03/12/18] amLODIPine BESYLATE [Norvasc 5 mg (*)] 5 mg PO DAILY 12/21/17 [Last Taken ] Atorvastatin Calcium [Lipitor 20 mg (*)] 20 mg PO HS 02/01/18 [Last Taken ] Diclofenac Sodium [Voltaren 75 MG (*)] 75 mg PO DAILY 03/12/18 [Last Taken 03/14] Losartan/Hydrochlorothiazide [Losartan-Hctz 100-25 mg Tab] 0.5 each PO BID 03/12 [Last Taken 03/14/18] predniSONE 5 mg PO DAILY 03/12/18 [Last Taken 03/15/18 06:00] Hydrocodone/APAP 5/325 [[place] 5/325 (*)] 1 tab PO Q4HRS PRN #10 tab 03/16/18 [ Last Taken Unknown] Discharge Medications: Refer to the Discharge Home Medication list for PRN reason. - Orders Services needed: Home Care, Registered Nurse Home Care Face to Face: I certify that this patient was under my care and that I had the required [id number] encounter meeting the encounter requirements on the discharge day. My findings support the fact that the patient is homebound as defined in Home Care Face to Face Continued: CMS Chapter 7 Medicare Benefits Manual 30.1.1 , The condition of the patient is such that there exists a normal inability to leave home and consequently, leaving home would require a considerable and taxing effort. Diet Recommendation: no restrictions on diet Additional Instructions: Resume home health care Hydrofera blue and absorptive dressing (optilock or other) 3x week and prn. I will see later this week for another application of primatrix (bovine collagen) - Follow Up Care Current Providers and Referrals: Coty Borden MD [Medical Doctor] - follow up in 1 week David Duarte MD [Primary Care Provider] -
--- NOTE | 2018-03-16 16:25 | HOSPPROG ---
Hospitalist Progress Note Assessment/Plan: * Bradycardia - resolved -back on coreg and tolerating it well * s/p hernia repair * Ear mass -follow-up path * LLE wound s/p debridement -wound vac * CAD/stent * Ischemic CM with AICD * FLEX/CPAP Okay for discharge home today Dispo per surgery Subjective: NO complaints Objective: Vital Signs Temp Pulse Resp BP Pulse Ox 36.8 C 72 16 85/56 L 93 03/16/18 11:40 03/16/18 11:57 03/16/18 11:40 03/16/18 11:40 03/16/18 11:57 Laboratory Results 03/15/18 11:55 03/15/18 03/16/18 03/17/18 05:59 05:59 05:59 Intake Total 1800 Output Total 510 Balance 1290 - Physical Exam Constitutional: no apparent distress, appears nourished, not in pain Cardiovascular: regular rate and rhythym, no murmur, rub, or gallop Respiratory: no respiratory distress, no rales or rhonchi, clear to auscultation Gastrointestinal: normoactive bowel sounds, soft, non-tender abdomen, no palpable masses Skin: no rashes or abrasions, no fluctuance, no induration Neurologic: AAOx3, sensation intact bilaterally Psychiatric: interacting appropriately, not anxious, not encephalopathic, thought process linear ICD10 Worksheet Patient Problems: Problems Problem Status Onset Abscess or cellulitis of foot Acute
--- NOTE | 2018-03-27 08:22 | GDS ---
[f rep st] DISCHARGE SUMMARY DISCHARGE DIAGNOSES: 1. Right inguinal hernia. 2. Right ear mass. 3. Left lower extremity wound. 4. Bradycardia. OTHER DIAGNOSES: Include: 1. History of coronary artery disease, status post 12 stents. 2. Ischemic cardiomyopathy with automatic implantable cardioverter- defibrillator. 3. Chronic left lower extremity wound with wound VAC. 4. Obstructive sleep apnea on continuous positive airway pressure. 5. Peripheral vascular disease. 6. Hypertension. 7. Chronic angina. 8. Hypothyroid. 9. Hyperlipidemia. 10. Dysphagia. 11. History of gastric ulcers with esophagitis. 12. Pemphigus vulgaris. 13. Chronic obstructive pulmonary disease with oxygen use. 14. Chronic hypoxic respiratory failure. 15. History of colovesicular fistula. 16. Knee, hip, and back surgeries. CONSULTATIONS: Dr. Ghada Messina, hospitalist. 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 PROCEDURES: 1. Open right inguinal hernia repair with mesh. 2. Excision of ear mass, 2 cm. 3. Nonselective debridement of left lower extremity wound with application of amniofil 500 mg with wound VAC and excision of necrotic tendon. HOSPITAL COURSE: The patient is an 82-year-old male with multiple comorbidities , as well as a known DVT, who electively underwent an open right inguinal hernia repair. He also had an ear mass. He was concerned about a chronic left lower extremity wound that has been under the care of Dr. Borden and so also excised this ear mass for biopsy and debrided his wound. The procedures were uncomplicated and he tolerated them well. The patient was kept overnight for observation. He developed asymptomatic bradycardia. This resolved spontaneously. The hospitalist service was consulted. An EKG was obtained and his Coreg was held. Ultimately, his heart rate improved and his Coreg was restarted, and he was considered safe for discharge. Pathology was pending at the time of discharge. DISCHARGE INSTRUCTIONS: Patient was discharged to home with a home care registered nurse in stable condition with plans for outpatient followup. /[id number]/MODL MTDD
== END 2018-03-16 15:39 | disposition home health service (06) ==
LOC: F3E 10:53
PROVIDERS: ADMIT Surgery; ATTEND Surgery
PROC: 0YU50JZ Supplement Right Inguinal Region with Synthetic Substitute, Open Approach (ICD-10-PCS; principal; 2018-03-15 13:00)
PROC: 0HB2XZZ Excision of Right Ear Skin, External Approach (ICD-10-PCS; principal; 2018-03-15 13:00)
PROC: 0HRLXK4 Replacement of Left Lower Leg Skin with Nonautologous Tissue Substitute, Partial Thickness, External Approach (ICD-10-PCS; principal; 2018-03-15 13:00)
DX: K40.90 Unilateral inguinal hernia, without obstruction or gangrene, not specified as recurrent (principal); L72.0 Epidermal cyst; L03.90 Cellulitis, unspecified; I11.0 Hypertensive heart disease with heart failure; I25.10 Atherosclerotic heart disease of native coronary artery without angina pectoris; I25.5 Ischemic cardiomyopathy; E78.5 Hyperlipidemia, unspecified; Z95.810 Presence of automatic (implantable) cardiac defibrillator
CPT/HCPCS: 11042; 11442; 15271; 49505; 93005; 93971; 97162; 97166; C1781; C9399; G8978; G8979; G8987; G8988; G8989; J0690; J2370; J2704; J3010; J7512